=== PATIENT | female | born 1955 | race Caucasian/White ===

== ENCOUNTER → 2022-10-05 15:20 | Outpatient (BNVA) | payer MEDICARE, SELFPAY | PROVIDERS: PCP Family Medicine; Visit Provider Psychiatry & Neurology Neurology | DX: G20 Parkinson's disease (principal); I95.1 Orthostatic hypotension | CPT/HCPCS: 99202 ==

== ENCOUNTER → 2022-11-24 15:35 | Outpatient (BNVA) | payer MEDICARE, SELFPAY | PROVIDERS: PCP Family Medicine; Visit Provider Psychiatry & Neurology Neurology | DX: G20 Parkinson's disease (principal); I95.1 Orthostatic hypotension | CPT/HCPCS: 99212 ==

== ENCOUNTER 2023-05-24 15:30 | Outpatient (AMB) | payer MEDICARE, SELFPAY ==
--- NOTE | 2023-05-24 15:31 | MHC.OFFVIS ---
Intake Vital Signs 05/24/23 15:33 Height 5 ft 4 in Weight 153 lb 2 oz BMI 26.3 BP 138/86 Blood Pressure Location Lt brachial Position Sitting Respiration 16 Pulse 96 Pulse Source Pulse Oximeter Pulse Oximetry (%) 100 Oxygen Delivery Method Room Air Intake Visit Reasons: 4m f/up Gait disorder/Parkinson - Conf Intake Note: Pt presents for a 4 month follow up for gait disorder and Parkinson's. She reports she has been the same since her last visit with the exception of frequent voiding at night. 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 Everything is stable except in the past week her BP has been dropping. 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 she had a RE scan which showed decreased uptake bilateral basal ganglia, specifically Putamen R>L and left caudate nucleus. She has h/o vertigo many years ago . In 2019 she started noticing right shoulder stiffness, neck pain, neck stiffness , dizziness.she has h/o neck pain for over 20 years but worsened in 2019. she has episodes of dizziness in mornings when she is reading a newspaper, or using a computer in the morning. she also has nausea, lightheadedness. She denies diplopia , denies dysarthria , denies syncope. she denies any memory issues. she has sleep talking - screaming 1/week. No depression or anxiety She denies tremors Her writing is smaller. She is slower in using utensils, slower in showering, dressing. Her voice is softer and has occasional drooling. Her gait is slower and feels off balance. SHe was in [employer] in [employer] school. No exposure to neuroleptics She denies constipation. she reports tinnitus for past 3 weeks [facility] Medical History Orthostatic hypotension Orthostatic intolerance Parkinsonism Migraine GERD (gastroesophageal reflux disease) Vertigo Cervical spondylosis Arthritis Surgical History History of appendectomy History of ankle surgery Family History Father Diabetes Hypertension Waldenstrom's disease Heart attack Mother Afib Dementia Brother Heart attack Sister Heart attack Social History Alcohol intake: current Patient Tobacco Use Status: Never used Tobacco Physical Exam Vital Signs: Last Vital Signs Pulse 96 05/24/23 15:33 Resp 16 05/24/23 15:33 BP 138/86 05/24/23 15:33 Pulse Ox 100 05/24/23 15:33 Oxygen Delivery Method Room Air 05/24/23 15:33 BMI result Body Mass Index 26.3 Const General: cooperative, healthy appearing, comfortable and no acute distress Nutritional Appearance: average body habitus Orientation/consciousness: patient oriented x3 Limitations: no limitations HEENT Head: Yes normal to inspection Eyes Pupils: Equal, round and reactive pupils present Neck Neck: Yes no meningeal signs Neuro Other: Mildly decreased facial expression and blink Decreased right facial movement Decreased range of motion neck Decreased upgaze 1+ cog wheel rigidty right UE 1+ in left UE Fine finger movements decreased zev R>L Foot taps decreased bilaterally R>L No tremors Gait- good stride and midld ecreased arm swings General: patient oriented x3, moves all extremities and no meningeal signs Cranial nerves: Yes Equal, round and reactive pupils present, Yes Normal facial strength present, Yes Midline tongue present and Yes Symmetric palate elevation present Gait exam (Neuro): Other gait observations present (mild stoop, no arm swing on right decreased on left, smaller steps) Deep tendon reflexes (DTR's): Right triceps reflex intensity grade: 2+, Left triceps reflex intensity grade: 2+, Rt Biceps (C5, C6): 2+, Left biceps reflex intensity grade: 2+, Right brachioradialis reflex intensity grade: 2+, Left brachioradialis reflex intensity grade: 2+, Right patellar reflex intensity grade: 3+ and Left patellar reflex intensity grade: 3+ Coordination: [id number] test normal Assessment & Plan Assessment & Plan (1) 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 side effects discussed Medications: New droxidopa (Northera) give consistently with OR without food, upon rising, at midday, late PM/at least 3hrs before bedtime 100 mg PO TID 90 caps 0RF Coding Level of Care Code Est Pt Level 4 (09626) Diagnoses Parkinsonism G20 Orthostatic hypotension I95.1
[2023-05-24 15:33] VITALS: BP 138/86; PULSE 96; RESP 16; O2SAT 100; BMI 26.3
== END 2023-05-24 15:53 | disposition home or self-care (01) ==
PROVIDERS: Visit Provider Psychiatry & Neurology Neurology
DX: G90.3 Multi-system degeneration of the autonomic nervous system (principal); G20.C Parkinsonism, unspecified
CPT/HCPCS: 99214

== ENCOUNTER → 2023-05-24 15:30 | Outpatient (BNVA) | payer MEDICARE, SELFPAY | PROVIDERS: Visit Provider Psychiatry & Neurology Neurology | DX: G20.A1 Parkinson's disease without dyskinesia, without mention of fluctuations (principal); I95.1 Orthostatic hypotension | CPT/HCPCS: 99212 ==

== ENCOUNTER 2023-09-08 13:01 | Outpatient (AMB) | payer MEDICARE, SELFPAY ==
--- NOTE | 2023-09-08 13:02 | MHC.OFFVIS ---
Intake Intake Visit Reasons: 3 mo f/u -Gait disorder/Parkinson-LVM Intake Note: Pt presents for a 3 month follow up for med check of Droxidopa. She reports doing well on this med. She is concerned that the pharmacist advised this presciptionin conjunction with her Midirin have serious side effects. Test link to [phone] Product Development Assistant Required: No Allergies Penicillins Adverse Reaction (Severe, Verified 09/08/23 13:05) rash HPI HPI Comments History of Present Illness Details 68y/o right handed female calls for follow up parkinsonism . 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 she had a RE scan which showed decreased uptake bilateral basal ganglia, specifically Putamen R>L and left caudate nucleus. She has h/o vertigo many years ago . In 2019 she started noticing right shoulder stiffness, neck pain, neck stiffness , dizziness.she has h/o neck pain for over 20 years but worsened in 2019. she has episodes of dizziness in mornings when she is reading a newspaper, or using a computer in the morning. she also has nausea, lightheadedness. She denies diplopia , denies dysarthria , denies syncope. she denies any memory issues. she has sleep talking - screaming 1/week. No depression or anxiety She denies tremors Her writing is smaller. She is slower in using utensils, slower in showering, dressing. Her voice is softer and has occasional drooling. Her gait is slower and feels off balance. SHe was in [employer] in [employer] school. No exposure to neuroleptics She denies constipation. she reports tinnitus for past 3 weeks [facility] Medical History Parkinsonian syndrome with idiopathic orthostatic hypotension Orthostatic hypotension Orthostatic intolerance Parkinsonism Migraine GERD (gastroesophageal reflux disease) Vertigo Cervical spondylosis Arthritis Surgical History History of appendectomy History of ankle surgery Family History Father Diabetes Hypertension Waldenstrom's disease Heart attack Mother Afib Dementia Brother Heart attack Sister Heart attack Social History Alcohol intake: current Patient Tobacco Use Status: Never used Tobacco Physical Exam Const General: cooperative, healthy appearing and comfortable Nutritional Appearance: average body habitus Orientation/consciousness: patient oriented x3 Neuro General: patient oriented x3 Cognition (Neuro): normal cognition Assessment & Plan Assessment & Plan (1) Parkinsonian syndrome with idiopathic orthostatic hypotension: Code(s): G20.C - Parkinsonism, unspecified; I95.1 - Orthostatic hypotension Plan Continue exercise Continue midodrine 2.5mg qa m and droxidopa 100mg tid Declines parkinsons medications. side effects discussed Telehealth Telehealth Location of provider rendering services: practice address Location of patient: address on file Patient Identification confirmed using: Name, : Yes Telehealth method: video Patient verbally consented to treatment: Yes Patient verbally consented to billing insurance company: Yes Patient informed of any privacy concerns related to visit: Yes Minutes spent on Phone/Video with Pt.: 16 Coding Level of Care Code Tele Est Pt Level 4 (27898) Diagnoses Parkinsonian syndrome with idiopathic orthostatic hypotension G20.C; I95.1
== END 2023-09-08 14:30 | disposition home or self-care (01) ==
LOC: HO.HSMS 13:02
PROVIDERS: PCP Family Medicine; Visit Provider Psychiatry & Neurology Neurology
DX: G20.C Parkinsonism, unspecified (principal); I95.1 Orthostatic hypotension
CPT/HCPCS: 99214

== ENCOUNTER → 2023-09-08 13:01 | Outpatient (BNVA) | payer MEDICARE, SELFPAY | PROVIDERS: PCP Family Medicine; Visit Provider Psychiatry & Neurology Neurology ==

== ENCOUNTER 2023-11-28 15:25 | Outpatient (AMB) | payer MEDICARE, SELFPAY ==
--- NOTE | 2023-11-28 15:32 | MHC.OFFVIS ---
Vital Signs 11/28/23 15:33 Height 5 ft 4 in Weight 153 lb BMI 26.3 BP 128/78 Blood Pressure Location Rt brachial Position Sitting Respiration 16 Pulse 89 Pulse Source Pulse Oximeter Pulse Oximetry (%) 96 Oxygen Delivery Method Room Air Intake Visit Reasons: 6m f/u Gait Disorder/Parkinson - Confirmed Intake Note: Pt presents for a 3 month follow up for Parkinson's. 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 She is doing better with droxidopa 100mg tid and midodrine 2.5mg qam Her BP occasionally is low in AM - 88/40 she reports left ankle fracture in the 90s and has plate and screws . But recently she started having more pain in her ankle. Her PCP reffered her to PT. 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 she had a RE scan which showed decreased uptake bilateral basal ganglia, specifically Putamen R>L and left caudate nucleus. She has h/o vertigo many years ago . In 2019 she started noticing right shoulder stiffness, neck pain, neck stiffness , dizziness.she has h/o neck pain for over 20 years but worsened in 2019. she has episodes of dizziness in mornings when she is reading a newspaper, or using a computer in the morning. she also has nausea, lightheadedness. She denies diplopia , denies dysarthria , denies syncope. she denies any memory issues. she has sleep talking - screaming 1/week. No depression or anxiety She denies tremors Her writing is smaller. She is slower in using utensils, slower in showering, dressing. Her voice is softer and has occasional drooling. Gait has been stable she reports constipation now. 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 Orthostatic hypotension Orthostatic intolerance Parkinsonism Migraine GERD (gastroesophageal reflux disease) Vertigo Cervical spondylosis Arthritis Surgical History History of appendectomy History of ankle surgery Family History Father Diabetes Hypertension Waldenstrom's disease Heart attack Mother Afib Dementia Brother Heart attack Sister Heart attack Social History Alcohol intake: current Patient Tobacco Use Status: Never used Tobacco Physical Exam Vital Signs: Last Vital Signs Pulse 89 11/28/23 15:33 Resp 16 11/28/23 15:33 BP 128/78 11/28/23 15:33 Pulse Ox 96 11/28/23 15:33 Oxygen Delivery Method Room Air 11/28/23 15:33 BMI result Body Mass Index 26.3 Const General: cooperative, healthy appearing, comfortable and no acute distress Nutritional Appearance: average body habitus Orientation/consciousness: patient oriented x3 Limitations: no limitations HEENT Head: Yes normal to inspection Eyes Pupils: Equal, round and reactive pupils present Neck Neck: Yes no meningeal signs Neuro Other: Mildly decreased facial expression and blink Decreased right facial movement Decreased range of motion neck Decreased upgaze 1+ cog wheel rigidty right UE 1+ in left UE Fine finger movements decreased zev R>L Foot taps decreased bilaterally R>L No tremors Gait- good stride and mild decreased arm swings General: patient oriented x3, moves all extremities and no meningeal signs Cranial nerves: Yes Equal, round and reactive pupils present, Yes Normal facial strength present, Yes Midline tongue present and Yes Symmetric palate elevation present Gait exam (Neuro): Other gait observations present (mild stoop, no arm swing on right decreased on left, smaller steps) Deep tendon reflexes (DTR's): Right triceps reflex intensity grade: 2+, Left triceps reflex intensity grade: 2+, Rt Biceps (C5, C6): 2+, Left biceps reflex intensity grade: 2+, Right brachioradialis reflex intensity grade: 2+, Left brachioradialis reflex intensity grade: 2+, Right patellar reflex intensity grade: 3+ and Left patellar reflex intensity grade: 3+ Coordination: [id number] test normal Assessment & Plan Assessment & Plan (1) Parkinsonian syndrome with idiopathic orthostatic hypotension: Code(s): G20.C - Parkinsonism, unspecified; I95.1 - Orthostatic hypotension Category: Medical Plan Continue exercise Continue midodrine 2.5mg qa m and droxidopa 100mg tid Declines parkinsons medications. side effects discussed Refer to ortho Orders: Referrals Orthopedics Referral M25.572 - Pain in left ankle and joints of left foot, Z87.81 - Personal history of (healed) traumatic fracture Coding Level of Care Code Est Pt Level 4 (31428) Complex EM visit Add On G2211 Diagnoses Parkinsonian syndrome with idiopathic orthostatic hypotension G20.C; I95.1
[2023-11-28 15:33] VITALS: BP 128/78; PULSE 89; RESP 16; O2SAT 96; BMI 26.3
== END 2023-11-28 15:56 | disposition home or self-care (01) ==
PROVIDERS: PCP Family Medicine; Visit Provider Psychiatry & Neurology Neurology
DX: G20.C Parkinsonism, unspecified (principal); I95.1 Orthostatic hypotension
CPT/HCPCS: 99214; G2211

== ENCOUNTER → 2023-11-28 15:25 | Outpatient (BNVA) | payer MEDICARE, SELFPAY | PROVIDERS: PCP Family Medicine; Visit Provider Psychiatry & Neurology Neurology | DX: G20.C Parkinsonism, unspecified (principal); I95.1 Orthostatic hypotension | CPT/HCPCS: 99212 ==

== ENCOUNTER 2024-06-05 14:00 | Outpatient (AMB) | payer MEDICARE, SELFPAY ==
[2024-06-05 14:03] VITALS: BP 126/74; BMI 25.9
--- NOTE | 2024-06-05 14:03 | MHC.OFFVIS ---
Vital Signs 06/05/24 14:03 Height 5 ft 4 in Weight 151 lb BMI 25.9 BP 126/74 Blood Pressure Location Rt brachial Position Sitting Intake Visit Reasons: 6 mon follow up Intake Note: Patient presents for 6 month follow up Allergies Penicillins Adverse Reaction (Severe, Verified 06/05/24 14:05) rash HPI Comments Details: 68y/o right handed female comes for follow up parkinsonism and orthostatic hypotension. She is doing better with droxidopa 100mg tid and midodrine 2.5mg qam Her BP is good - low( 90/50) in mornings but gets better after .she is feeling better . she Increased her fluid intake No falls , she got a cortisone shot in he [facility] and has been good since then. 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 she had a RE scan which showed decreased uptake bilateral basal ganglia, specifically Putamen R>L and left caudate nucleus. She has h/o vertigo many years ago . In 2019 she started noticing right shoulder stiffness, neck pain, neck stiffness , dizziness.she has h/o neck pain for over 20 years but worsened in 2019. she has episodes of dizziness in mornings when she is reading a newspaper, or using a computer in the morning. she also has nausea, lightheadedness. She denies diplopia , denies dysarthria , denies syncope. she denies any memory issues. she has sleep talking - screaming 1/week. No depression or anxiety She denies tremors Her writing is smaller. She is slower in using utensils, slower in showering, dressing. Her voice is softer and has occasional drooling. Gait has been stable she reports constipation now. 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 Orthostatic hypotension Orthostatic intolerance Parkinsonism Migraine GERD (gastroesophageal reflux disease) Vertigo Cervical spondylosis Arthritis Surgical History History of appendectomy History of ankle surgery Family History Father Diabetes Hypertension Waldenstrom's disease Heart attack Mother Afib Dementia Brother Heart attack Sister Heart attack Social History Alcohol intake: current Patient Tobacco Use Status: Never used Tobacco Physical Exam Vital Signs: Last Vital Signs BP 126/74 06/05/24 14:03 BMI result Body Mass Index 25.9 Const General: cooperative, healthy appearing, comfortable and no acute distress Nutritional Appearance: average body habitus Orientation/consciousness: patient oriented x3 Limitations: no limitations HEENT Head: Yes normal to inspection Eyes Pupils: Equal, round and reactive pupils present Neck Neck: Yes no meningeal signs Neuro Other: Mildly decreased facial expression and blink Decreased right facial movement Decreased range of motion neck Decreased upgaze 1+ cog wheel rigidty right UE 1+ in left UE Fine finger movements decreased zev R>L Foot taps decreased bilaterally R>L No tremors Gait- good stride and mild decreased arm swings General: patient oriented x3, moves all extremities and no meningeal signs Cranial nerves: Yes Equal, round and reactive pupils present, Yes Normal facial strength present, Yes Midline tongue present and Yes Symmetric palate elevation present Gait exam (Neuro): Other gait observations present (mild stoop, no arm swing on right decreased on left, smaller steps) Coordination: [id number] test normal Assessment & Plan Assessment & Plan (1) Parkinsonian syndrome with idiopathic orthostatic hypotension: Code(s): G20.C - Parkinsonism, unspecified; I95.1 - Orthostatic hypotension Category: Medical Plan Continue exercise Continue midodrine 2.5mg qa m and droxidopa 100mg tid Declines parkinsons medications. side effects discussed Coding Level of Care Code Est Pt Level 4 (78886) Complex EM visit Add On G2211 Diagnoses Parkinsonian syndrome with idiopathic orthostatic hypotension G20.C; I95.1
== END 2024-06-05 14:18 | disposition home or self-care (01) ==
PROVIDERS: PCP Family Medicine; Visit Provider Psychiatry & Neurology Neurology
DX: G20.C Parkinsonism, unspecified (principal); I95.1 Orthostatic hypotension
CPT/HCPCS: 99214; G2211

== ENCOUNTER → 2024-06-05 14:00 | Outpatient (BNVA) | payer MEDICARE, SELFPAY | PROVIDERS: PCP Family Medicine; Visit Provider Psychiatry & Neurology Neurology | DX: G20.C Parkinsonism, unspecified (principal); I95.1 Orthostatic hypotension | CPT/HCPCS: 99212 ==

== ENCOUNTER 2024-12-21 14:01 | Outpatient (AMB) | payer MEDICARE, SELFPAY ==
[2024-12-21 14:04] VITALS: BP 130/70; PULSE 99; O2SAT 98; BMI 25.1
--- NOTE | 2024-12-21 14:04 | MHC.OFFVIS ---
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 She is doing better with droxidopa 100mg 2-1-1 and midodrine 2.5mg qam Her BP is good - low( 90/50) in mornings but gets better after .she is feeling better . 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 she had a RE scan which showed decreased uptake bilateral basal ganglia, specifically Putamen R>L and left caudate nucleus. She has h/o vertigo many years ago . In 2019 she started noticing right shoulder stiffness, neck pain, neck stiffness , dizziness.she has h/o neck pain for over 20 years but worsened in 2019. she has episodes of dizziness in mornings when she is reading a newspaper, or using a computer in the morning. she also has nausea, lightheadedness. She denies diplopia , denies dysarthria , denies syncope. she denies any memory issues. she has sleep talking - screaming 1/week. No depression or anxiety She denies tremors Her writing is smaller. She is slower in using utensils, slower in showering, dressing. Her voice is softer and has occasional drooling. Gait has been stable she reports constipation now. 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 Orthostatic hypotension Orthostatic intolerance Parkinsonism Migraine GERD (gastroesophageal reflux disease) Vertigo Cervical spondylosis Arthritis Surgical History History of appendectomy History of ankle surgery Family History Father Diabetes Hypertension Waldenstrom's disease Heart attack Mother Afib Dementia Brother Heart attack Sister Heart attack Social History Alcohol intake: current Patient Tobacco Use Status: Never used Tobacco Physical Exam Vital Signs: Last Vital Signs Pulse 99 12/21/24 14:04 BP 130/70 12/21/24 14:04 Pulse Ox 98 12/21/24 14:04 Oxygen Delivery Method Room Air 12/21/24 14:04 BMI result Body Mass Index 25.1 Const General: cooperative, healthy appearing, comfortable and no acute distress Nutritional Appearance: average body habitus Orientation/consciousness: patient oriented x3 Limitations: no limitations HEENT Head: Yes normal to inspection Eyes Pupils: Equal, round and reactive pupils present Neck Neck: Yes no meningeal signs Neuro General: patient oriented x3, moves all extremities and no meningeal signs Cranial nerves: Yes Equal, round and reactive pupils present, Yes Normal facial strength present, Yes Midline tongue present and Yes Symmetric palate elevation present Gait exam (Neuro): Other gait observations present (mild stoop, no arm swing on right decreased on left, smaller steps) Coordination: [id number] test normal Assessment & Plan Assessment & Plan (1) 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 side effects discussed Orders: Orders PT Evaluation and Treatment Today G20.C - Parkinsonism, unspecified, I95.1 - Orthostatic hypotension Coding Level of Care Code Est Pt Level 4 (64563) Complex EM visit Add On G2211 Diagnoses Parkinsonian syndrome with idiopathic orthostatic hypotension G20.C; I95.1
== END 2024-12-21 15:07 | disposition home or self-care (01) ==
LOC: HO.HSMS 14:02
PROVIDERS: PCP Family Medicine; Visit Provider Psychiatry & Neurology Neurology
DX: G20.C Parkinsonism, unspecified (principal); I95.1 Orthostatic hypotension
CPT/HCPCS: 99214; G2211

== ENCOUNTER → 2024-12-21 14:01 | Outpatient (BNVA) | payer MEDICARE, SELFPAY | PROVIDERS: PCP Family Medicine; Visit Provider Psychiatry & Neurology Neurology | DX: G20.C Parkinsonism, unspecified (principal); I95.1 Orthostatic hypotension | CPT/HCPCS: 99212 ==

== ENCOUNTER 2025-06-24 13:27 | Outpatient (AMB) | payer MEDICARE, SELFPAY ==
[2025-06-24 13:35] VITALS: BP 136/84; PULSE 85; O2SAT 98; BMI 26.1
--- NOTE | 2025-06-24 13:35 | MHC.OFFVIS ---
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 [employer] [facility] Required: No Accompanied by: Spouse Allergies Penicillins Adverse Reaction (Severe, Verified 06/24/25 13:35) rash Medication List - Last Reconciled 06/24/25 by Kim Dubon MD cholecalciferol (vitamin D3) 50 mcg PO DAILY droxidopa (Northera) 100 mg PO QID 90 days estradiol 10 mcg vaginal 2XW glucosamine uoud-hdgpt-2-vit E 500-400-5 mg-mg-unit caps PO magnesium oxide 400 mg PO DAILY midodrine 2.5 mg PO ONCE simvastatin 20 mg PO BEDTIME vitamin B complex 1 tab PO DAILY HPI Comments Details: 70y/o right handed female comes for follow up parkinsonism and orthostatic hypotension. she is doing good. Her main issues is balance but she is managing . No falls. She is doing better with droxidopa 100mg 2-1-1 and midodrine 2.5mg qam Her BP is good - low( 90/50) in mornings but gets better after .she is feeling better . she Increased her fluid intake she had tough time in January and February 2025 - her mother and brother in law she lives in a farm and [place] she was diagnosed with Parkinsons Plus syndrome in Apr 2022 . she had a RE scan which showed decreased uptake bilateral basal ganglia, specifically Putamen R>L and left caudate nucleus. She has h/o vertigo many years ago . In 2019 she started noticing right shoulder stiffness, neck pain, neck stiffness , dizziness.she has h/o neck pain for over 20 years but worsened in 2019. she has episodes of dizziness in mornings when she is reading a newspaper, or using a computer in the morning. she also has nausea, lightheadedness. She denies diplopia , denies dysarthria , denies syncope. she denies any memory issues. she has sleep talking - screaming 1/week. No depression or anxiety She denies tremors Her writing is smaller. She is slower in using utensils, slower in showering, dressing. Her voice is softer and has occasional drooling. Gait has been stable she reports constipation now. 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 Orthostatic hypotension Orthostatic intolerance Parkinsonism Migraine GERD (gastroesophageal reflux disease) Vertigo Cervical spondylosis Arthritis Surgical History History of appendectomy History of ankle surgery Family History Father Diabetes Hypertension Waldenstrom's disease Heart attack Mother Afib Dementia Brother Heart attack Sister Heart attack Social History Alcohol intake: current Patient Tobacco Use Status: Never used Tobacco Physical Exam Vital Signs: Last Vital Signs Pulse 85 06/24/25 13:35 BP 136/84 06/24/25 13:35 Pulse Ox 98 06/24/25 13:35 Oxygen Delivery Method Room Air 06/24/25 13:35 BMI result Body Mass Index 26.1 Const General: cooperative, healthy appearing, comfortable and no acute distress Nutritional Appearance: average body habitus Orientation/consciousness: patient oriented x3 Limitations: no limitations HEENT Head: Yes normal to inspection Eyes Pupils: Equal, round and reactive pupils present Neck Neck: Yes no meningeal signs Neuro General: patient oriented x3, moves all extremities and no meningeal signs Cranial nerves: Yes Equal, round and reactive pupils present, Yes Normal facial strength present, Yes Midline tongue present and Yes Symmetric palate elevation present Gait exam (Neuro): Other gait observations present (mild stoop, no arm swing on right decreased on left, smaller steps) Coordination: [id number] test normal Assessment & Plan Assessment & Plan (1) 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
--- OUTSIDE RECORDS SUMMARY | 2025-06-24 19:35 | XMS_ITS | Data Portability ---
Author Organization [facility] [employer], [employer] Address [address] [place] [address] [place] [address] Care Team Providers Care Health And Safety Tech Name Role Phone JENISE BRAVO Referring Provider Unavailable Assessment Encounter Date Assessment Date Assessment LastModified by Organization Details LastModified Time 04/05/2022 04/05/2022 IMPRESSION: -- early 2019 onset of 5-10-minute episodes of sweating and mild weakness, 5-8 times per month in the morning reading a paper or sometimes the computer, transforming ~October 2021 into daily morning episodes of mild nausea and very mild weakness, with noticeable but not intense neck pain, with no episodes throughout the course of a vacation; --~October 2021 onset of fatigue and weakness of ankles and legs climbing hills on a golf course or using elliptical machine, resolving in about 10 minutes after exertion is completed. --Acting out dream behavior intermittently for the past few years and recently smaller handwriting. Exam findings include mildly hunched gait with mildly small low trajectory steps and reduced arm swing; finger tapping and foot tapping dysrhythmia. 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 Parkinson's disease is most common but only occurs without rest tremor at presentation 10-15% of the time. Lewy body disease is next most common. She does not report any hallucination but I do not ask explicitly. I will at follow-up. Her lucid history does not suggest any cognitive decline. Her morning episodes have an autonomic character. This could be multisystems atrophy. Alternatively, the nausea may be myofascial in the context of worsened neck pain which may relate to emerging truncal rigidity from parkinsonism. We discussed this. She wonders how certain I am about a parkinsonian. I did tell her that the exam signs together with her acting out dreams and her smaller handwriting make me fairly certain, at least 50%, but I would like some additional objective data. I suggest DaTscan and she agrees. She also agrees to follow-up with her given that this serious diagnosis is on the table. She wonders about prognosis. I tell her if there is parkinsonism, it progresses slowly, over years. The progression will make gait increasingly difficult and will make coordination increasingly difficult. Depending on the type of parkinsonism, medications may be of more or less help. PLAN Rhonda Fink, April 05, 2022 DATSCAN for worsening gait, REM behavior sleep disorder and parkinsonism on exam. Follow-up afterwards with your . elizabeth Not available 04/05/2022 16:57:27 05/25/2022 05/25/2022 IMPRESSION: -- -- early 2019 onset of 5-10-minute episodes of sweating and mild weakness, 5-8 times per month in the morning reading a paper or sometimes the computer, transforming ~October 2021 into daily morning episodes of mild nausea and very mild weakness, with noticeable but not intense neck pain, with no episodes throughout the course of a vacation; --~October 2021 onset of fatigue and weakness of ankles and legs climbing hills on a golf course or using elliptical machine, resolving in about 10 minutes after exertion is completed. --Acting out dream behavior intermittently for the past few years and recently smaller handwriting. DATA REVIEW IMAGING: DaTscan April 28, 2022, per dictation [facility] radiology: Significantly decreased radiotracer uptake bilaterally and basal ganglia, more specifically in the bilateral putamen right worse than left and in the left caudate nucleus. Consistent with a parkinsonian syndrome of dopaminergic depletion. We discussed that this makes it highly likely that she has a parkinsonian condition of dopaminergic depletion explaining at least a large proportion of her presenting symptoms. She responds that her mind is in denial. Further explanation and answering of questions is summarized in the plan given to patient and , below. Her neck pain and nausea in the morning bother her. I think this may be myofascial although related to emerging stiffness from parkinsonism. She is agreeable to physical therapy. Her weakness in lower extremities with physical activities likely relates to her parkinsonian gait. I offered physical therapy for this as well and she again is agreeable. She wondered about medication. We discussed that carbidopa/levodop a helps symptoms and Parkinson's disease significantly, less so in other syndromes of dopaminergic depletion. When I mentioned that there might be side effects, she says that she likes to avoid medications as much as she can and would like to hold off on carbidopa/levodop a. To review the clinical diagnostic pathway at initial consultation March 2022: Exam findings include mildly hunched gait with mildly small low trajectory steps and reduced arm swing; finger tapping and foot tapping dysrhythmia. 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 Parkinson's disease is most common but only occurs without rest tremor at presentation 10-15% of the time. Lewy body disease is next most common. She does not report any hallucination but I do not ask explicitly. I will at follow-up. Her lucid history does not suggest any cognitive decline. Her morning episodes have an autonomic character. This could be multisystems atrophy. Alternatively, the nausea may be myofascial in the context of worsened neck pain which may relate to emerging truncal rigidity from parkinsonism. We discussed this. She wonders how certain I am about a parkinsonian. I did tell her that the exam signs together with her acting out dreams and her smaller handwriting make me fairly certain, at least 50%, but I would like some additional objective data. I suggest DaTscan and she agrees. She also agrees to follow-up with her given that this serious diagnosis is on the table. She wonders about prognosis. I tell her if there is parkinsonism, it progresses slowly, over years. The progression will make gait increasingly difficult and will make coordination increasingly difficult. Depending on the type of parkinsonism, medications may be of more or less help. PLAN Rhonda Fink, May 252021 DaTscan is positive so you have, in all likelihood, a syndrome of parkinsonism that comes from reduced dopamine in parts of your brain that control how you move. The possible conditions that you have, in order of likelihood are: Parkinson's disease (70% of positive DaTscan) Lewy body disease (25% of positive DaTscan) Multisystems atrophy, supranuclear palsy and cortical basal degeneration the other 5%. If you have any of these truly rare conditions, it would be multisystems atrophy as your exam does not suggest supranuclear palsy or cortical basal degeneration at all. Although Parkinson's disease is most common, only 10 to 15% of people with Parkinson's disease start out without a tremor of one of their hands when it is in their left. You do not have such a tremor. At makes Parkinson's disease somewhat less likely for you, personally. Lewy body disease would then become the next most likely but you do not have the other two main issues (besides your abnormal walking) that characterized Lewy body disease: Hallucination and significant day-to-day fluctuation. Multi systems atrophy is a possibility because of your nausea every morning which could be an unusual type of autonomic abnormality (autonomic = action of nerves unconsciously). PHYSICAL THERAPY A: Assess and treat myofascial syndrome plausibly relating to morning episodes of nausea and neck pain, not present during vacations; context parkinsonism, DATSCAN Positive, but particular type still uncertain, without rest tremor B: Also, assess and treat parkinsonian gait with a feeling of weakness most prominent after playing golf or using elliptical machine Colleen Pena MBA, PT [address] [address] [email or web address] We will send a referral to the physical therapist for physical therapy. It is your responsibility to make the initial phone call to the above number to set up an initial appointment CLINICAL TRIALS Or interested in clinical trials, maybe. He would like to know more about them. The best way to move forward is to visit the website clinical trials.gov. > Here are some websites that might be useful for more information for you: There are two large organizations that are focused on helping individuals with Parkinson's disease and their families. Each has a national website and a local website, which I provide: https://www.parki nson.org/ https://www.parki nson.org/Corrina nd .. https://www.apdap arkinson.org/ https://www.apdap arkinson.org/aaron moore/julia syed/ . . These websites may be useful for information about Lewy body disease NIH Info for families http://www.ninds. nih.gov/disorders /dementiawithlewy bodies/dementiawi thlewybodies.htm A book for families (Click ``pdf button to download pdf version of book) . You may find education about Parkinson's disease as well as resources including support groups for both patients and family members. I NINDS Parkinson's Disease Information Page http://www.ninds. nih.gov/disorders /parkinsons_disea se/parkinsons_dis ease.htm Follow-up in 3 months Osvaldo Mclaughlin MD, PhD [facility] mrossen Not available 05/25/2022 13:27:06 Plan of Treatment Reminders Order Date Submit Date Provider Last Modified By Organization Details Last Modified Time Details Appointments None recorded. Lab None recorded. Referral neurologic physical therapist referral - Also, assess and treat parkinsonia n gait with a feeling of weakness most prominent after playing golf or using elliptical machine 2021 022 [email or web address] 1 Colleen Pena PT, [address] [place] [address], [address], 3 13:49:20 neurologic physical therapist referral - Assess and treat myofascial syndrome plausibly relating to morning episodes of nausea and neck pain, not present during vacations; context parkinsonis m, DATSCAN Positive, but particular type still uncertain, without rest tremor 2021 [email or web address] 1 Colleen Pena PT, [address] [place] [address], [address], 3 13:49:19 Procedures None recorded. Surgeries None recorded. Imaging SPECT, brain - DATSCAN for worsening gait, REM behavior sleep disorder and parkinsonis m on exam. 2021 022 [email or web address] 1 [facility], [address], [place], [address], 2 15:54:12 SPECT, brain - DATSCAN for worsening gait, REM behavior sleep disorder and parkinsonis m on exam. [facility] [address], [place], [address], 16:38:47 Medication Orders None recorded. Patient TargetsNo targets recorded. Patient Instructions Encounter Date Encounter Id Patient Instructions Last Modified By Organization Details Last Modified Time 04/05/2022 [id number] BILLING Discussion across issues of diagnoses and management and same day associated chart review and management greater than 50% greater than 90 minutes mrossen Not available 04/05/2022 16:59:10 05/25/2022 [id number] BILLING Discussion across issues of diagnoses and management and same day associated chart review and management greater than 50% greater than 40 minutes mrossen Not available 05/25/2022 12:40:31 Reason for Referral Assess and treat myofascial syndrome plausibly relating to morning episodes of nausea and neck pain, not present during vacations; context parkinsonism, DATSCAN Positive, but particular type still uncertain, without rest tremor Referring Physician: Osvaldo Mclaughlin, Neurology, Encounter Date: 05/25/2022 Also, assess and treat parki nsonian gait with a feeling of weakness most prominent after playing golf or using elliptical machine Referring Physician: Osvaldo Mclaughlin, Neurology, Encounter Date: 05/25/2022 Results Created Date Observation Date Name Description Value Unit Range Abnormal Flag Note LastModifiedBy Organization Detail LastModifiedTime 04/28/20 22 04/28/2022 nm brain imagi ng prince SPECT Brain RE SPECT study. Histor y: Concer n for Judy son's diseas e. Compar china: None availa ble. Techni que: 5.5 mCi of I-123 Ioflup ane was inject ed intrav enousl y. After a four-h our delay, SPECT imagin g of the brain was perfor med. Findin gs: There is asymme tric radiot racer uptake in bilate ral basal gangli a with signif icant decrea sed uptake in the region of bilate ral putami na (right more than left) and decrea sed uptake in the left caudat e. Impres dwight: Signif icantl y decrea sed radiot racer uptake in the basal gangli a. Differ ential diagno sis includ es Judy son's diseas e, multip le system atroph y, progre ssive supran uclear palsy, bola ia with Lewy Bodies , and cortic al basal degene ration . I have person samaray review ed the images and I agree with this report . WSN: [id number] Orderi ng Physic slade: Dorcas Mclaughlin Dictat ed By: Karson Villalobos MD Dictat ed Date/T yelena: 4:30 pm Review ed By: Baldomero gonzalez MD, Viral Signed By: Baldomero gonzalez MD, Viral Signed Date/T yelena: 4:35 pm Transc ribed By: REN Transc ribed Date/T yelena: 4:06 pm Patien t Class: [facility] [address] (Outpt Imaging) [address] [facility], [place], [address], 04/29/2022 14:00:00 04/28/20 22 SPECT , brain No observ ation record ed. [address] [facility]iology [facility] 100 [facility], [place], [address], 04/28/2022 16:38:47 Result Notes None recorded. Procedures Surgical History Date Name Laterality Status Provider Name and Address Organization Details Recorded Time 05/25/2022 DATA REVIEW completed Osvaldo Mclaughlin MD [address] [place] [address], [phone], [facility] 05/25/2022 12:39:34 Imaging Results None recorded. Procedure Notes None recorded. Medical Equipment None Reported. Allergies No known drug allergies Medications Name Sig Start Date Stop Date Status Note LastModified by Organization Details LastModified Time hydrocodone 5 mg-acetaminop hen 325 mg tablet TAKE 1 TABLET BY MOUTH EVERY 6 HOURS NEEDED FOR PAIN active Not Available Not Available No t Available prednisone 20 mg tablet TAKE 2 TABLETS BY MOUTH DAILY WITH BREAKFAST. active Not Available Not Available N ot Available clindamycin HCl 150 mg capsule TAKE 1 CAPSULE BY MOUTH 4 TIMES A DAY active Not Available Not Available No t Available simvastatin 20 mg tablet active Not Available Not Available Not Available lorazepam 1 mg tablet TAKE 1 TABLET BY MOUTH 1 HOUR BEFORE PROCEDURE active Not Available Not Available No t Available fluocinonide 0.05 % topical cream APPLY TO AFFECTED AREAS TWICE A DAY FOR TWO WEEKS active Not Available Not Available No t Available chlorhexidine gluconate 0.12 % mouthwash RINSE MOUTH WITH 10 ML TWICE DAILY FOR 3 WEEKS. SPIT OUT AFTER USE active Not Available Not Available No t Available estradiol 10 mcg vaginal tablet active Not Available Not Available Not Available Vitals Date Recorded Body height Body mass index (BMI) Body weight Respiratory rate Provider Name and Address Organization Details Last Updated DateTime 04/05/2022 162.56 cm 27.5 kg/m2 66215.78 g 12 /min Tammie Navarrete [facility] 04/05/2022 15:59:17 Social History Question Answer Notes LastModified by QUIQ Details LastModified Time Tobacco Smoking Status Never Smoker Tammie Navarrete [facility] 04/05/2022 16:01:11 What Is Your Level Of Caffeine Consumption? Moderate 2 Cups Per Day Information not available 04/05/2022 What Is The Highest Grade Or Level Of School You Have Completed Or The Highest Degree You Have Received? [id number] Information not available 04/05/2022 Which Of Your Hands Is Dominant? Right Information not available 04/05/2022 Sex: Unknown Functional Status Question Answer Note LastModified by QUIQ Details LastModified Time What is your level of alcohol consumption? Moderate 4 drinks per week Information not available 04/05/2022 Mental Status None recorded. Family History Relationship Description Onset Age of this Age Resolved Age Notes LastModified by Organization Details LastModified Time Mother Dementia Not available 0 04/05/2022 15:59:28 Father Diabetes mellitus Not available 2021 15:59:34 Father Heart disease Not available 2021 15:59:41 Father Hypertensive disorder Not available 2021 15:59:50 Father Thyroiditis Not availabl e 04/05/2022 16:00:03 Medical History Condition Response Claustrophobia N Hospitalizations N Head Trauma/Injury N High Blood Pressure or Hypertension N Thyroid Problems N Lung Disease N COPD or emphysema N Brain Tumors N Depression N Encephalitis N Vitamin B12 deficiency N PTSD N Spine Problems N Heart Attack ([place]) N Obstructive Sleep Apnea N Alcoholism N Diabetes N Autoimmune disease N Bleeding Disorder N Arthritis N Tuberculosis N Developmental Problems N Cerebral Palsy N Neck Problems N Cancer N Back Problems N Stroke N Asthma N Heartburn, acid reflux, GERD Y Vitamin D Deficiency N Epilepsy/Seizures N Bipolar Disorder N Sleep Disorder N Hepatitis N Aneurysm N Liver Disease N Heart Disease N Headaches Y Fibromyalgia N Osteoporosis N High Cholesterol or Hyperlipidemia N Kidney Disease N Gynecological HistoryNo gynecological history recorded. 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 Abnormal gait 37765301 R 26.81 [id number] Osvaldo Mclaughlin MD [facility] [address] [place] [address] [place] [id number] 05/25/2022 12:20:39 05/25/2022 16:21:17 Parkinson's disease 99750520 G20 Lewy body disease 317379 02 G31.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 Abnormal gait 04696195 R 26.81 Dystonia 69573117 G24.3 Unsteadiness present 267 360780 R26.81 Health Concerns Section Related Observation LastModified by Organization Detai ls LastModified Time None Recorded Concern Status LastModified by Organization Details LastModified Time None Recorded Advance Directives Directive None Recorded Payers Insurance Date Sequence Insurance Name Policy Number Policy Rene Covered Member ID Rene Member ID Guarantor Name 05/22/2022 2 [facility] [id number] Rhonda Fink [id number] Rhonda Fink 05/26/2022 1 MEDICARE B-[place]: [email or web address] Rhonda Fink [id number] Rhonda Fink Notes Date Note Type Note Provider Name and Address Organization Details Recorded Time 2 text/html She presents for initial neurology consultation for assessment and management of:-- early 2019 onset of 5-10-minute episodes of sweating and mild weakness, 5-8 times per month in the morning reading a paper or sometimes the computer, transforming ~October 2021 into daily morning episodes of mild nausea and very mild weakness, with noticeable but not intense neck pain, with no episodes throughout the course of a vacation;--~October 2021 onset of fatigue and weakness of ankles and legs climbing hills on a golf course or using elliptical machine, resolving in about 10 minutes after exertion is completed.Past history includes hypercholesterolemia on simvastatin; there is a remote history of menses associated headaches.~2.5 years ago, early 2019, she began noticing 5-10-minute episodes of sudden onset of sweating with a mild feeling of weakness. Episodes would always occur in the morning, after eating, with sitting down and reading the paper or, less often, using the computer. Sometimes there was started immediately with one of these activities, sometimes it would take a while. When symptoms emerged, she would stop the activity. The episode would last 5-10 minutes. She would be able to go back to reading the paper or using the computer and there would be no recurrence. Episodes never happened later in the day. Episodes initially happened 5-8 times per month. There was slow increase in frequency so that by early spring 2021 they were happening eight-times per month, ~twice per week.In ~October 2021, episodes transformed in nature and became an every morning affect. Still, each episode would emerge during reading the paper or using the computer in the morning. However, the dominant symptom became nausea; the sweating resolved. Neck pain, not intense but notable, emerged as an additional symptom. There is no dizziness with this nausea during morning reading. She notes that she has had neck pain for years, intermittently after exercise such as golf or gym work such as using the elliptical machine. Also new since ~October, when she is crossing the street and looking both ways, she gets a brief seconds long very mild episode of nausea, with a very little dizziness.She went on a vacation in late spring 2021 during which she had no episodes during morning reading of the newspaper or using the computer. She has not tried not reading the newspaper or the computer in the morning while not on vacation.In addition, also ~October 2021, she began to notice problems with walking, fatigue and weakness in ankles and thighs walking up each of the two hills on her golf course; and the same symptoms using the elliptical machine. There is no associated pain or shortness of breath or any other symptom. The fatigue and weakness resolves ~10 minutes after the particular exertion finishes. The symptoms are bothersome enough so that she has switched from the elliptical machine to the treadmill where she does not get the symptoms, even if she uses the treadmill on an incline.I note that the sweating/mild weakness in the morning symptoms emerged around the same time that COVID emerged as a pandemic. She has thought about that but believes the symptoms started before the pandemic started. She notes that at that time, she had a cardiac work-up with primary care that was unrevealing.She has no restless legs at night. Her has noticed her laughing or talking or sometimes hitting him while she is sleeping i nfrequently, at least he tells her infrequently. This has been going on for few years. She has noticed that her handwriting has gotten smaller unless she really concentrates. Her sense of smell is good. She has no problem with bladder control. She has never noticed a tremor. Osvaldo Mclaughlin MD [address] [place] [address], [phone], [facility] 04/07/2022 13:10:17 2 text/html Follow-up of:-- early 2019 onset of 5-10-minute episodes of sweating and mild weakness, 5-8 times per month in the morning reading a paper or sometimes the computer, transforming ~October 2021 into daily morning episodes of mild nausea and very mild weakness, with noticeable but not intense neck pain, with no episodes throughout the course of a vacation;--~October 2021 onset of fatigue and weakness of ankles and legs climbing hills on a golf course or using elliptical machine, resolving in about 10 minutes after exertion is completed.-- She is accompanied by her , Ebenezer Mendez history includes hypercholesterolemia on simvastatin; there is a remote history of menses associated headaches.Since initial neurology consultation April 05, 2022, she has had no change in symptomatology. I ask if she has ever had hallucination as I had neglected to ask that at initial consultation. She responds no, never. In addition, her symptoms remain essentially the same from day-to-day as there is no marked day-to-day variation. Presenting symptomatology is reviewed from initial neurology consultation April 05, 2022:~2.5 years ago, early 2019, she began noticing 5-10-minute episodes of sudden onset of sweating with a mild feeling of weakness. Episodes would always occur in the morning, after eating, with sitting down and reading the paper or, less often, using the computer. Sometimes there was started immediately with one of these activities, sometimes it would take a while. When symptoms emerged, she would stop the activity. The episode would last 5-10 minutes. She would be able to go back to reading the paper or using the computer and there would be no recurrence. Episodes never happened later in the day. Episodes initially happened 5-8 times per month. There was slow increase in frequency so that by early spring 2021 they were happening eight-times per month, ~twice per week.In ~October 2021, episodes transformed in nature and became an every morning affect. Still, each episode would emerge during reading the paper or using the computer in the morning. However, the dominant symptom became nausea; the sweating resolved. Neck pain, not intense but notable, emerged as an additional symptom. There is no dizziness with this nausea during morning reading. She notes that she has had neck pain for years, intermittently after exercise such as golf or gym work such as using the elliptical machine. Also new since ~October, when she is crossing the street and looking both ways, she gets a brief seconds long very mild episode of nausea, with a very little dizziness.She went on a vacation in late spring 2021 during which she had no episodes during morning reading of the newspaper or using the computer. She has not tried not reading the newspaper or the computer in the morning while not on vacation.In addition, also ~October 2021, she began to notice problems with walking, fatigue and weakness in ankles and thighs walking up each of the two hills on her golf [place]; and the same symptoms using the elliptical machine. There is no associated pain or shortness of breath or any other symptom. The fatigue and weakness resolves ~10 minutes after the particular exertion finishes. The symptoms are bothersome enough so that she has switched from the elliptical machine to the treadmill where she does not get the symptoms, even if she uses the treadmill on an incline.I note that the sweating/mild weakness in the morning symptoms emerged around the same time that COVID emerged as a pandemic. She has thought about that but believes the symptoms started before the pandemic started. She notes that at that time, she had a cardiac work-up with primary care that was unrevealing.She has no restless legs at night. Her has noticed her laughing or talking or sometimes hitting him while she is sleeping i nfrequently, at least he tells her infrequently. This has been going on for few years. She has noticed that her handwriting has gotten smaller unless she really concentrates. Her sense of smell is good. She has no problem with bladder control. She has never noticed a tremor. Osvaldo Mclaughlin MD [address] [place] [address] [place], [phone], [facility] 05/25/2022 13:28:16 OBGyn Episode No OBEpisode recorded.
--- OUTSIDE RECORDS SUMMARY | 2025-06-24 19:35 | XMS_ITS | Encounter Summary ---
Author Organization [employer] [facility] Address [address] [place] [address] [place] [address] Phone Care Team Providers Care Research Chief Engineer Name Role Phone Reilly Tucker MD Primary Care Provider Shelly James MD Unavailable [phone] Reilly Tucker MD Unavailable [phone] Reilly Tucker MD Unavailable [phone] Ilya Vieyra MD Primary Care Provider [phone] Ilya Vieyra MD Unavailable Encounter Details Date Type Department Care Team (Latest Contact Info) Description 02/05/2022 Transcribe Orders Virtual Department [address] [place] [address] Reilly Tucker MD [address] [phone] [email or web address] Vertigo, late effect of cerebrovascular disease (Primary Dx) Social History Tobacco Use Types Packs/Day Years Used Date Smoking Tobacco: Never Smokeless Tobacco: Never Alcohol Use Standard Drinks/Week Comments Yes 3 (1 standard drink = 0.6 oz pur e alcohol) Comments No Sex and Gender Information Value Date Recorded Sex Assigned at Not on file Legal Sex Female 9:58 PM EDT Gender Identity Not on file Sexual Orientation Not on file documented as of this encounter Plan of Treatment Upcoming Encounters Date Type Department Care Team (Late st Contact Info) Description 09/06/2025 2:30 PM EST Office Visit [facility] [address] [place] [address] Ilya Vieyra MD 234 [facility], [address] [place] [address] [email or web address] documented as of this encounter Results * XR CERVICAL SPINE 4-5 VIEWS (02/08/2022 11:17 AM EDT) Anatomical Region Laterality Modality C-spine Computed Radiogr aphy 02/08/2022 11:1 9 AM EDT Impressions 02/08/2022 2:03 PM EDT Moderate C5-6 and mild C6-7 disc disease. Mild right C5-6 neural foraminal stenosis. Narrative 02/08/2022 2:03 PM EDT COMPARISON: None. CERVICAL SPINE RADIOGRAPH FINDINGS: 6 images obtained. The odontoid tip is not well visualized. Osteopenia. Mild curvature convex to the right. No acute fracture or malalignment. Moderate C5-6 and mild C6-7 disc space narrowing with anterior wedging and endplate osteophytes. Multilevel mild facet arthropathy. Mild right C5-6 neural foraminal narrowing. No cervical ribs. No destructive or suspicious bone lesions. Prevertebral soft tissues are normal. Imaged lung apices are clear. Procedure Note Vinh Gill MD - 02/08/2022 COMPARISON: None. CERVICAL SPINE RADIOGRAPH FINDINGS: 6 images obtained. The odontoid tip is not well visualized. Osteopenia. Mild curvature convexto the right. No acute fracture or malalignment. Moderate C5-6 and mildC6-7 disc space narrowing with anterior wedging and endplate osteophytes.Multilevel mild facet arthropathy. Mild right C5-6 neural foraminalnarrowing. No cervical ribs. No destructive or suspicious bone lesions.Prevertebral soft tissues are normal. Imaged lung apices are clear. IMPRESSION: Moderate C5-6 and mild C6-7 disc disease. Mild right C5-6 neural foraminalstenosis. Reilly Tucker MD IMG XR SPINE Final R esult documented in this encounter Visit Diagnoses Diagnosis Vertigo, late effect of cerebrovascular disease- Primary Vertigo, late effect of cerebrovascular disease documented in this encounter Additional Health Concerns Assessment Noted Time PHQ-2 Depression Total Score: 1 12/07/19 20 10:41 AM EDT documented as of this encounter Care Teams Research Chief Engineer Relationship Specialty Start Date End Date Reilly Tucker MD [address] [address] [place] [phone] [email or web address] PCP - General 04/25/17 06/08/22 Ilya Vieyra MD [address] [place] [address] [place] [phone] [email or web address] PCP - General Family Medicine 06/09/22 Shelly James MD [address] [place] [id number] [email or web address] Historical LMR Provider 05/01/17 Reilly Tucker MD [address] [address] [place] [phone] [email or web address] Historical LMR Provider 05/01/17 Reilly Tucker MD [address] [address] [place] [phone] [email or web address] Insurance Assigned Provider 11/11/18 Ilya Vieyra MD [address] [place] [address] [place] [phone] [email or web address] Insurance Assigned Provider 10/15/23 documented as of this encounter Additional Source Comments The information contained in this document represents components of the legal health record. It is not the complete legal health record.[facility]
--- OUTSIDE RECORDS SUMMARY | 2025-06-24 19:35 | XMS_ITS | Encounter Summary ---
Author Organization [employer] [facility] Address [address] [place] [address] [place] [address] Phone Care Team Providers Care Second Officer Name Role Phone Reilly Tucker MD Primary Care Provider Shelly James MD Unavailable [phone] Reilly Tucker MD Unavailable [phone] Ilya Vieyra MD Primary Care Provider [phone] Ilya Vieyra MD Unavailable Encounter Details Date Type Department Care Team (Late st Contact Info) Description 02/23/2022 Procedure Pass [facility], [address] [address] Social History Tobacco Use Types Packs/Day Years [...] Description 09/06/2025 2:30 PM EST Office Visit [facility] Medicine [address] [place] [address] Ilya Vieyra MD [address] [place] [address], [address] [place] [address] [email or web address] documented as of this encounter Visit Diagnoses Not on filedocumented in this encounter Additional Health Concerns Assessment Noted Time PHQ-2 Depression Total Score: 1 12/07/19 20 10:41 AM EDT documented as of this encounter Care Teams Second Officer Relationship Specialty Start Date End Date Reilly Tucker MD [address] [address] [place] [phone] [email or web address] PCP - General 04/25/17 06/08/22 Ilya Vieyra MD [address] [place] [address] [place] [phone] [email or web address] PCP - General Family Medicine 06/09/22 Shelly James MD [address] [place] [address] [email or web address] Historical LMR Provider 05/01/17 Reilly Tucker MD [address] [place] [address] [place] [phone] [email or web address] Historical LMR Provider 05/01/17 Ilya Vieyra MD [address] [place] [address] [place] [phone] [email or web address] Insurance Assigned Provider 10/15/23 documented as of this encounter Additional Source Comments The information contained in this document represents components of the legal health record. It is not the complete legal health record.[facility]
--- OUTSIDE RECORDS SUMMARY | 2025-06-24 19:35 | XMS_ITS | Clinical Summary ---
Author Organization [facility] Address [address] [place] [id number] Phone Care Team Providers Care Model Maker Scale Name Role Phone Shelly James MD Unavailable [phone] Reilly Tucker MD Unavailable [phone] Wilber Vieyra MD Primary Care Provider [phone] Wilber Vieyra MD Unavailable Allergies Active Allergy Reactions Criticality Noted Date Comments Penicillin Unknown 03/10/2017 Medications omega-3 fatty acids 300 mg Cap daily. Act santos magnesium oxide 500 mg Tab daily. Active famotidine (PEPCID) 10 MG tablet 1 tablet as needed 7 Active cholecalciferol, vitamin D3, 1,000 unit capsule daily. Active cyanocobalamin, vitamin B-12, 100 MCG tablet Take 100 mcg by mouth daily. Active midodrine (PROAMATINE) 2.5 MG tablet TAKE 1 TABLET BY MOUTH EVERY DAY DO NOT GIVE LAST DOSE OF DAY AFTER 6PM OR WITHIN 4 HRS OF BEDTIME 3 Active droxidopa (NORTHERA) 100 mg capsule 4 Active estradioL (VAGIFEM) 10 mcg TabIndications:Vag inal atrophy INSERT 1 TABLET VAGINALLY 2TIMES A WEEK 24 tablet 3 4 Active simvastatin (ZOCOR) 20 MG tabletIndications: Mixed hyperlipidemia TAKE 1 TABLET DAILY 90 tablet 3 5 Active furosemide (LASIX) 20 MG tabletIndications: Edema of left lower leg Take 1 tablet (20 mg total) by mouth daily. 30 tablet 5 5 Active Active Problems Problem Noted Date Diagnosed Date Neurogenic orthostatic hypotension 04/04/2025 Osteopenia of necks of both femurs 04/04/2025 Vitamin D deficiency 04/04/2025 Traumatic arthritis of left ankle 12/12/2023 Acute left ankle pain 11/14/2023 Assessment & Plan (11/14/2023 2:37 PM EDT): Left Ankle Pain: History of fracture in the 90s with subsequent hardware placement and removal. Recent increase in pain severity over the past three weeks, possibly related to increased treadmill use. Pain is localized to the top of the foot and lateral ankle and exacerbated by weight-bearing and lifting the foot. No significant swelling or signs of acute injury. -Order ankle x-ray to evaluate for possible stress fracture or arthritis. -Advise patient to continue supportive measures including wearing supportive shoes, using ice and elevation, and taking ibuprofen as needed. -Advise patient to maintain mobility within pain tolerance and to avoid exacerbating activities. -Schedule follow-up appointment to review x-ray results and adjust treatment plan as necessary. 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 She gave verbal consent and I shave the corn down with a 15 blade. No complications, no bleeding. Guidance was given. She will follow-up in a month or 2 for a reevaluation. She will call if there is any other concerns or questions. She understands and agrees. Abnormal stress ECG 12/01/2018 Assessment & Plan (12/14/2019 1:32 PM EDT): Previously false positive EKG findings on stress test. Just to make a note of this for the future Assessment & Plan (12/01/2018 9:44 AM EDT): I believe her EKG changes on exercise stress was false-positive she has no chest pain or nausea when she exercise she reached over 12 METS and her nuclear imaging was normal. Dizziness and giddiness 06/30/2018 Assessment & Plan (09/15/2022 8:54 PM EST): Patient is awaiting to get a second opinion regarding her symptoms. A neurologist that she saw originally for this problem has diagnosed her with parkinsonian- like syndrome. We will wait for her to get a second opinion and then discuss treatment options. Assessment & Plan (12/14/2019 1:32 PM EDT): Occasional orthostatic dizziness she does not hydrate well I recommended increasing her fluid intake. Assessment & Plan (06/30/2018 4:33 PM EST): She is having the symptoms of dizziness and nausea on exertion. Is unlikely to be cardiac especially since been going on for a year it does not happen all the time and it seems to only happen in her house at certain times of the day. She is otherwise quite active. Given her family history I think we just proceeded to do an exercise EKG stress test to make sure were not missing anything as females can have atypical symptoms. But he did tell her the likelihood of cardiac cause is low. Nausea 06/30/2018 Assessment & Plan (12/01/2018 9:44 AM EDT): Continue working up nausea either neurological or GI perspective Actinic keratosis 08/07/2017 GERD (gastroesophageal reflux disease) 8 Assessment & Plan (09/15/2022 8:53 PM EST): Plan is for patient to take [id number] Pepcid as needed for GERD symptoms. No signs or symptoms of worsening GERD suspected at this time. Mixed hyperlipidemia 08/07/2017 Assessment & Plan (11/18/2022 3:24 AM EDT): Patient is taking simvastatin 20 mg daily and denies any side effects from the medication. Her latest lipid profile shows total cholesterol of 184 and LDL of 105. Plan is to continue the medication as prescribed and we will recheck her lipid profile in 6 months. Assessment & Plan (09/15/2022 8:52 PM EST): Plan is to continue medication as prescribed. We will check a lipid panel before her next appointment. Assessment & Plan (12/14/2019 1:32 PM EDT): Given her family history we will continue her on statin therapy try to get her LDL below 100 Assessment & Plan (12/01/2018 9:44 AM EDT): Continue lipid-lowering therapy. We did talk about aspirin. Given her family history. Nuclear stress test was normal. I will consider a calcium CT scan to risk stratify her at some point if she is willing. She will let us know if she decides if that score is over 100 then I would consider a baby aspirin Vaginal atrophy 08/07/2017 Immunizations Immunization Administration Dates Next Due INFLUENZA, SPLIT VIRUS, TRIV ALENT W/ PRESERVATIVE IM 03/29/2011 Influenza High-Dose Quadriva lent Preservative Free IM 04/01/2023,04/07/2022 Influenza High-Dose Trivalen t Preservative Free IM 03/28/2020,04/01/2019,03/27/2018 Influenza Quadrivalent Adjuv anted Preservative Free IM 03/28/2021,03/29/2020 Influenza Quadrivalent Preservative Free IM 03/12,03/10/2016 Influenza Quadrivalent w/ Preservative IM 2014 Influenza Trivalent Adjuvant ed Preservative free IM 04/09/2024 Influenza trivalent preserva tive free intradermal 04/10/2014,04/03/2013,04/20/2012 Influenza, Unspecified Formulation 04/21/2010 Pneumococcal conjugate PCV13 03/10/2016 Pneumococcal conjugate PCV20 02/23/2024 Pneumococcal polysaccharide PPSV23 03/30/2017 Td (adult),2 Lf Tetanus Toxo id, PF, Adsorbed 04/26/2023 Tdap 02/24/2010 Zoster live 10/08/2013 Zoster recombinant 07/14/2022,01/25/2022 Family History Medical History Relation Comments CV disease Father Cancer Father Diabetes mellitus Father Hypertension Father Stroke Maternal Grandfather Relation Status Comments Father Alive Maternal Grandfather Sister heart attack 201 8 Social History Tobacco Use Types Packs/Day Years Used Date Smoking Tobacco: Never Smokeless Tobacco: Never Tobacco Cessation:Counseling Given: Not Answered Alcohol Use Standard Drinks/Week Comments Yes 3 (1 standard drink = 0.6 oz pur e alcohol) Education Answer Date Recorded Are you interested in more education? Not on kelsie e 11/05/2022 Are you concerned about learning? Not on file 11/05/2022 No 11/05/2022 No 11/05/2022 Digital Access Answer Date Recorded No 12/04/2022 No 12/04/2022 Reliable internet access at home? Not on file 12/04/2022 Device with a working camera? Not on file Intimate Partner Violence Answer Date R ecorded Denied Basic Needs Not on file 02/23/2024 In the past 12 months have y ou been in a relationship with a person who hurts, threatens, or tries to control you? No 02/23/2024 Worried food would run out Not on file 02/22 In the past 12 months have y ou been in a relationship with a person who hurts, threatens, or tries to control you? No 02/23/2024 Comments No Sex and Gender Information Value Date Recorded Sex Assigned at Not on file Legal Sex Female 9:58 PM EDT Gender Identity Not on file Sexual Orientation Not on file Last Filed Vital Signs Vital Sign Reading Time Taken Comments Blood Pressure 130/70 03/08/2025 4:18 PM EDT Pulse 88 03/08/2025 4:18 PM EDT Temperature 36.3 C (97.3 F) 08/30/2024 4:46 PM EST Respiratory Rate 18 08/25/2023 4:07 PM EST Oxygen Saturation 99% 03/08/2025 4:18 PM EDT Inhaled Oxygen Concentration - - Weight 67.1 kg (148 lb) 03/08/2025 4:18 PM EDT Height 162.6 cm (5' 4 ) 03/08/2025 4:18 PM EDT Body Mass Index 25.4 03/08/2025 4:18 PM EDT Plan of Treatment Upcoming Encounters Date Type Department Care Team (Late st Contact Info) Description 09/06/2025 2:30 PM EST Office Visit [facility] [address] [place] [address] Wilber Vieyra MD [address] [place] [address], [address] [place] [address] Health Maintenance Due Date Last Done Comments COLOGUARD 1998 FIT TEST 1998 FOBT 1998 SIGMOIDOSCOPY 1998 VIRTUAL COLONOSCOPY 1998 COLONOSCOPY 08/06/2020 08/06/2010 COLORECTAL CANCER SCREENING 08/06/2020 INFLUENZA VACCINE (#1) 2025 , 04/01/2023, 04/01/2023, Additional history exists COVID-19 VACCINE ( season) 2025 06/15/2021, 10/08/2020, 09/17/2020 CREATININE LEVEL 12/11/2025 12/11/2024, , 10/08/2022, Additional history exists LIPID PANEL 12/11/2025 12/11/2024, 12/09, 10/08/2022, Additional history exists POTASSIUM LEVEL 12/11/2025 12/11/2024, 12/09, 10/08/2022, Additional history exists DEPRESSION SCREENING 03/08/2026 03/08/2025 MAMMOGRAM 02/12/2027 02/12/2025, 09/09, 09/30/2022, Additional history exists RSV VACCINE (1 - 1-dose 75+ series) 2028 Adult Td,Tdap Booster 04/26/2033 04/26/2023, 010 HEPATITIS C SCREENING Completed 05/26/2020, 020 ZOSTER VACCINES Completed 07/14/2022, 01/08, 10/08/2013 PNEUMOCOCCAL VACCINES (50+ years) Completed 02/23/2024, 03/30/2017, 03/10/2016 OSTEOPOROSIS SCREENING INITIAL (ONE-TIME) Completed 08/10/2024 SMOKING STATUS SCREENING (Once After 26 Yrs) Completed 03/08/2025 HEPATITIS A VACCINES Aged Out No long er eligible based on patient's age to complete this topic HIB VACCINES Aged Out No longer eligi ble based on patient's age to complete this topic MENINGOCOCCAL VACCINES (ACWY) Aged Out No longer eligible based on patient's age to complete this topic MENINGOCOCCAL VACCINES (B) Aged Out N o longer eligible based on patient's age to complete this topic Medical Devices Not on file Procedures Procedure Name Priority Date/Time Associated Diagnosis Comments BI MAMMOGRAM SCREENING WITH TOMOSYNTHESIS WITH CAD (BILATERAL) Routine 02/12/2025 2:06 PM EDT Breast screening LIPID PANEL Routine 12/11/2024 9:49 AM EDT Mixed hyperlipidemia COMPREHENSIVE METABOLIC PANEL (CMP) Routine 12/11/2024 9:49 AM EDT Mixed hyperlipidemia BD DXA AXIAL (SPINE) WITH HIP Routine 08/10/2024 2:19 PM EST Asymptomatic menopause HEPATITIS C ANTIBODY, QUALITATIVE Routine 05/26/2020 9:32 AM EST Screening for condition from Last 3 Months or Most Recently Relevant to Health Maintenance Results * BI MAMMOGRAM SCREENING WITH TOMOSYNTHESIS WITH CAD (BILATERAL) (02/12/2025 2:06 PM EDT) Anatomical Region Laterality Modality Breast Left, Breast Right, Breast Bilateral Bila teral Mammography 02/12/2025 8:29 PM EDT Impressions 02/12/2025 8:34 PM EDT No mammographic evidence of malignancy in either breast. Annual screening mammography is recommended. BI-RADS 1 NEGATIVE The patient will be notified of the results and recommendations. Narrative 02/12/2025 8:34 PM EDT BI MAMMOGRAM SCREENING WITH TOMOSYNTHESIS WITH CAD (BILATERAL) Additional patient information: Screening. COMPARISON: Comparison is made with relevant prior imaging. Breast composition: There are scattered areas of fibroglandular density. FINDINGS: No abnormal masses, suspicious calcifications, or other significant findings are identified mammographically in either breast. us Wilber Vieyra MD IMG MG EXAMS Final Result * (ABNORMAL) Comprehensive metabolic panel (12/11/2024 9:49 AM EDT) SODIUM 141 133 - 146 mmol/L [facility] POTASSIUM 4.4 3.3 - 5.1 mmol/L [facility] CHLORIDE 105 96 - 108 mmol/L [facility] CO2 28 21 - 35 mmol/L [facility] BUN 22(H) 6 - 19 mg/dL [facility] CREATININE 0.80 0.5 - 1.5 mg/dL [facility] GLUCOSE 104(H) 70 - 99 mg/dL [facility] ALBUMIN 4.3 3.9 - 4.8 g/dL [facility] TOTAL PROTEIN 6.9 6.5 - 8.0 g/dL [facility] CALCIUM 9.4 8.4 - 10.3 mg/dL [facility] ALKALINE PHOSPHATASE 60 39 - 117 U/L [facility] TOTAL BILIRUBIN 0.3 0.0 - 1.2 mg/dL [facility] AST 17 0 - 37 U/L [facility] ALT 17 0 - 40 U/L [facility] GLOBULIN 2.6 1 - 4.8 g/dL [facility] EGFR 79 >59 mL/min/1.7 3m2 [facility] Comment:Estimated glomerular filtration rate calculated using the CKD-EPI refit equation. ANION GAP 12 10 - 20 mmol/L [facility] Blood 12/11/2024 9:49 AM EDT 12/11/2024 9:54 AM EDT us Wilber Vieyra MD LAB BLOOD BKR ORDERABLES Final R esult [address] [address] * (ABNORMAL) Lipid panel (12/11/2024 9:49 AM EDT) HDL 69 mg/dL [facility] Comment: Interpretation <40 mg/dL: Low HDL cholesterol (major risk factor for CHD) Greater than or equal to 60 mg/dL: High HDL cholesterol ( negative risk factor for CHD) HDL - cholesterol is affected by a number of factors, e.g. smoking, excerise, hormones, sex and age. CHOLESTEROL 192 0 - 240 mg/dL [facility] TRIGLYCERIDES 67 30 - 160 mg/dL [facility] LDL 110 50 - 129 mg/dL [facility] Comment: LDL levels in terms of risk for coronary heart disease: <100 mg/dL: Optimal 100-129 mg/dL: Near or above optimal 130-159 mg/dL: Borderline high 160-189 mg/dL: High >190 mg/dL: Very High CARDIAC RISK RATIO 2.8(L) 3.3 - 4.4 C [facility] Blood 12/11/2024 9:49 AM EDT 12/11/2024 9:54 AM EDT us Wilber Vieyra MD LAB BLOOD BKR ORDERABLES Final R esult Performing Organization Address City/State/[facility] Co de Phone Number [address] [address] * BD DXA AXIAL (SPINE) WITH HIP (08/10/2024 2:19 PM EST) Anatomical Region Laterality Modality Bone Density Bone Density 08/10/2024 2:17 PM EST Impressions 08/10/2024 2:21 PM EST Interpretation: Osteopenia. Narrative 08/10/2024 2:21 PM EST Referred By: WILBER VIEYRA Indications: Postmenopausal Scanner: Tomfoolery A with serial# of [id number] located at [facility] Bone Density Scan (DXA) 08/10/24 Details of prior DXA scans are available by clicking View Image BMD T- Z- Skeletal Site gm/cm2 score score BMD Change Since Prior Scan ------ ----- ----- PA Spine (L1 L2 L3) 0.841 -1.60 0.50 N/A Total Hip (Left) 0.740 -1.70 -0.10 N/A Femoral Neck (Left) 0.620 -2.10 -0.20 N/A Total Hip (Right) 0.770 -1.40 0.20 N/A Femoral Neck (Right) 0.612 -2.10 -0.30 N/A ------ ----- ----- * Denotes significant change when >= 0.022 g/cm2 for the spine, 0.027 g/cm2 for the total hip, 0.029 g/cm2 for the femoral neck. Interpretation: Osteopenia. Technical Quality: Imaging of all sites was of adequate quality. FRAX: Based on FRAX(r) 3.6 ([place] White female), this patient's likelihood of hip fracture is 5.9% and major osteoporotic fracture is 19.1% over the next 10 years. The patient reported the following risks of fracture on a questionnaire: parental history of hip fracture. Additional Information: -World Health Organization criteria classify adults based on lowest T-score at PA spine, hip or forearm: Normal (T-score >= -1.0), Osteopenia (T-score between -1 and -2.5), or Osteoporosis (T-score <= -2.5). At [facility], T-scores are compared to peak bone density of a young white gender matched reference population. - For premenopausal women and men under the age of 50, Z-scores (comparison to age, gender, and ethnicity matched reference population) are used: Above expected range for age (Z-score >= 2.0), Within expected range of age (Z-score 1.9 to -1.9), or Below expected range for age (Z-score <= -2.0). - The Bone Health and Osteoporosis Foundation recommends that treatment be considered in men aged more than 50 years and in postmenopausal women with ANY of the following: Prior hip or vertebral fractures; T-score of <= -2.5 at the PA spine or hip; or 10 year fracture probability by FRAX of >= 3% for the hip or >= 20% for major osteoporotic fracture. - The FRAX algorithm (https://www.shani.ac.uk/FRAX/tool.aspx) is designed to predict 10-year fracture risk in treatment-naive adults between the ages of 40 and 90. It is not intended to be used in those receiving pharmacologic osteoporosis treatment. - Including race/ethnicity in the generation of T- or Z-scores or in the FRAX calculation is complicated, and currently undergoing active review to ensure that we can give patients the best information on their risk of fracture. -Some prior studies may not be compatible with our comparison software. -Click on View Full Report to see subsequent pages with images and prior bone density results. Reviewed By: Kevin Chaudhry MD on 08/10/2024 14:21:59 Procedure Note Kevin Chaudhry MD - 08/10/2024 Referred By: WILBER VIEYRA Indications: Postmenopausal Scanner: Tomfoolery A with serial# of [id number] located at [facility] Bone Density Scan (DXA) 08/10/24 Details of prior DXA scans are available by clicking View Image BMD T- Z- Skeletal Site gm/cm2 score score BMD Change Since Prior Scan ------ ----- PA Spine (L1 L2 L3) 0.841 -1.60 0.50 N/A Total Hip (Left) 0.740 -1.70 -0.10 N/A Femoral Neck (Left) 0.620 -2.10 -0.20 N/A Total Hip (Right) 0.770 -1.40 0.20 N/A Femoral Neck (Right) 0.612 -2.10 -0.30 N/A ------ ----- * Denotes significant change when >= 0.022 g/cm2 for the spine, 0.027g/cm2 for the total hip, 0.029 g/cm2 for the femoral neck. Interpretation: Osteopenia. Technical Quality: Imaging of all sites was of adequate quality. FRAX: Based on FRAX(r) 3.6 ([place] White female), this patient's likelihoodof hip fracture is 5.9% and major osteoporotic fracture is 19.1% over thenext 10 years. The patient reported the following risks of fracture on a questionnaire: parental history of hip fracture. Additional Information: -World Health Organization criteria classify adults based on lowestT-score at PA spine, hip or forearm: Normal (T-score >= -1.0), Osteopenia (T-score between -1 and -2.5), or Osteoporosis (T-score <= -2.5). At [facility], T-scores are compared to peak bone density of a young white gender matched reference population. - For premenopausal women and men under the age of 50, Z-scores(comparison to age, gender, and ethnicity matched reference population) are used:Above expected range for age (Z-score >= 2.0), Within expected range of age (Z-score 1.9 to -1.9), or Below expected range for age (Z-score <= -2.0). - The Bone Health and Osteoporosis Foundation recommends that treatment be considered in men aged more than 50 years and in postmenopausal women with ANY of the following: Prior hip or vertebral fractures; T-score of <= -2.5 at the PA spine or hip; or 10 year fracture probability by FRAX of >= 3%for the hip or >= 20% for major osteoporotic fracture. - The FRAX algorithm (https://www.shani.ac.uk/FRAX/tool.aspx) is designed to predict 10-year fracture risk in treatment-naive adultsbetween the ages of 40 and 90. It is not intended to be used in those receiving pharmacologic osteoporosis treatment. - Including race/ethnicity in the generation of T- or Z-scores or in the FRAX calculation is complicated, and currently undergoing active review to ensure that we can give patients the best information on their risk of fracture. -Some prior studies may not be compatible with our comparison software. -Click on View Full Report to see subsequent pages with images and prior bone density results. Reviewed By: Kevin Chaudhry MD on 08/10/2024 14:21:59 IMPRESSION: Interpretation: Osteopenia. us Wilber Vieyra MD IMG BD BONE DENSITY DEXA Final R esult * Hepatitis C antibody, qualitative (05/26/2020 9:32 AM EST) HCV NON-REACTIV E NON-REACTI VE [facility] Blood 05/26/2020 9:32 AM EST 05/26/2020 9:38 AM EST us Reilly Tucker MD LAB BLOOD BKR ORDERABLE S Final Result [facility] [address] [place] [address] from Last 3 Months or Most Recently Relevant to Health Maintenance Insurance MEDICARE PART A & B [facility] MEDEX SUPPLEMENT MEDICARE PART A & B [employer] MED[employer] SUPPLEMENT MEDICARE PART A & B [employer] MED[employer] SUPPLEMENT MEDICARE PART A & B [employer] MED[employer] SUPPLEMENT MEDICARE PART A & B [employer] MED[employer] SUPPLEMENT MEDICARE PART A & B [facility] MEDEX SUPPLEMENT MEDICARE PART A & B [employer]OSS MEDEX SUPPLEMENT MEDICARE PART A & B [employer] MEDEX SUPPLEMENT MEDICARE PART A & B [employer] MEDEX SUPPLEMENT [employer] Advance Directives For more information, please contact: [phone] (9AM - 5PM [facility], Tuesday-Tuesday) Documents on File Type Date Recorded Patient Director Of Primary Expl anation Healthcare Proxy 08/30/2024 POLST 08/30/2024 Care Teams Model Maker Scale Relationship Specialty Start Date End Date Wilber Vieyra MD [address] [place] [address] [address] [place] [address] PCP - General Family Medicine 06/09/22 Shelly James MD [address] [place] [address], [address] [place], [place] [id number] [email or web address] Historical LMR Provider 05/01/17 Reilly Tucker MD [address] [place] [address] 7 [place] [id number] [email or web address] Historical LMR Provider 05/01/17 Wilber Vieyra MD [address] [place] [address] [address] [place] [address] [email or web address] Insurance Assigned Provider 10/15/23 Additional Source Comments The information contained in this document represents components of the legal health record. It is not the complete legal health record.[facility]
--- OUTSIDE RECORDS SUMMARY | 2025-06-24 19:36 | XMS_ITS | Encounter Summary ---
Author Organization [employer] Formerly [facility], [facility] Address [address] [place] [address] Phone Care Team Providers Care Quality Assurance Auditor Name Role Phone Reilyl Tucker MD Primary Care Provider Rosalie Donald FURNITURE SALESPERSON Unavailable Rosalina Ragland MAKING MACHINE OPERATOR Unavailable Shelly James MD Unavailable [phone] Reilly Tucker MD Unavailable Radha Lance MD Unavailable Naila Cosme FURNITURE SALESPERSON Unavailable [phone] Sarmad Tucker MD Unavailable Reilly Tucker MD Unavailable Ilya Vieyra MD Primary Care Provider [phone] Ilya Vieyra MD Unavailable Encounter Details Date Type Department Care Team (Late st Contact Info) Description 11/14/2018 Ancillary Orders [facility] [address] [place], [place] [phone] Reilly Tucker MD 234 [facility] 7 [place] [address] [email or web address] Breast screening Social History Tobacco Use Types Packs/Day Years Used Date Smoking Tobacco: Never Smokeless Tobacco: Never Alcohol Use Standard Drinks/Week Comments Yes 0 (1 standard drink = 0.6 oz pur [...] Description 09/06/2025 2:30 PM EST Office Visit [facility] [address] [place] [address] Ilya Vieyra MD 234 [facility] [address] [place] [address] [email or web address] documented as of this encounter Results * BI MAMMOGRAM SCREENING WITH TOMOSYNTHESIS WITH CAD (BILATERAL) (12/12/2018 9:55 AM EDT) Anatomical Region Laterality Modality Breast Left, Breast Right, Breast Bilateral Bila teral Mammography 12/12/2018 11:0 5 AM EDT Impressions 12/12/2018 11:08 AM EDT No mammographic evidence of malignancy. BI-RADS CATEGORY: 2 - Benign finding. DENSITY: There are scattered fibroglandular densities. POS - CDHMAMA Narrative 12/12/2018 11:08 AM EDT Standard digital full-field 2-D C view and two-plane tomographic imaging was performed and compared with multiple prior studies, most recently 11/24/2017, with utilization of computer-aided detection. The breasts are composed of scattered fibroglandular densities. The stromal markings are essentially unchanged in overall appearance and distribution. No dominant spiculated mass, suspicious clustered microcalcifications, or focal zone of pathologic skin thickening or retraction are noted to have arisen in the interim. Chronic linear secretory-type calcifications are again seen in the retroareolar tissues bilaterally. Procedure Note Mariseal Mccoy MD - 12/12/2018 Standard digital full-field 2-D C view and two-plane tomographic imagingwas performed and compared with multiple prior studies, most qtfrairr29/17/2018, with utilization of computer-aided detection. The breasts are composed of scattered fibroglandular densities. Thestromal markings are essentially unchanged in overall appearance anddistribution. No dominant spiculated mass, suspicious clusteredmicrocalcifications, or focal zone of pathologic skin thickening orretraction are noted to have arisen in the interim. Chronic linearsecretory-type calcifications are again seen in the retroareolar tissuesbilaterally. IMPRESSION: No mammographic evidence of malignancy. BI-RADS CATEGORY: 2 - Benign finding. DENSITY: There are scattered fibroglandular densities. POS - CDHMAMA Reilly Tucker MD IMG MG EXAMS Final R esult documented in this encounter Visit Diagnoses Diagnosis Breast screening Breast screening, unspecified Breast screening Breast screening, unspecified documented in this encounter Care Teams Quality Assurance Auditor Relationship Specialty Start Date End Date Reilly Tucker MD [address] [place] [phone] [email or web address] PCP - General 04/25/17 06/08/22 Ilya Vieyra MD [address] [place] [address] [email or web address] PCP - General Family Medicine 06/09/22 Rosalie Donald NP 1 [place] [address] Historical LMR Provider 05/01/17 2 Rosalina Ragland CNP [address] [facility], 2nd [place] [address] [email or web address] Historical LMR Provider 05/01/17 07/18/21 Shelly James MD [address] [place] [address] [email or web address] Historical LMR Provider 05/01/17 Reilly Tucker MD [address] [place] [address] 7 [place] [phone] [email or web address] Historical LMR Provider 05/01/17 Radha Lance MD [address] [place] [address] 7 [place] [address] [email or web address] Historical LMR Provider 05/01/17 07/18/21 Naila Cosme NP [address] [place] [address] Historical LMR Provider 05/01/17 2 Sarmad Tucker MD [address] [place] [address] [address] [place] [phone] [email or web address] Historical LMR Provider 05/01/17 07/18/21 Reilly Tucker MD [address] [place] [address] 7 [place] [phone] [email or web address] Insurance Assigned Provider 11/11/18 02/13/22 Ilya Vieyra MD [address] [place] [address] 7 [place] [address] [email or web address] Insurance Assigned Provider 10/15/23 documented as of this encounter Additional Source Comments The information contained in this document represents components of the legal health record. It is not the complete legal health record.[facility]
--- OUTSIDE RECORDS SUMMARY | 2025-06-24 19:36 | XMS_ITS | Encounter Summary ---
Author Organization [employer] [facility] Address [address] [address] Phone Care Team Providers Care Computer Hardware Designer Name Role Phone Shelly James MD Unavailable [phone] Reilly Tucker MD Unavailable [phone] Ilya Vieyra MD Primary Care Provider [phone] Ilya Vieyra MD Unavailable Encounter Details Date Type Department Care Team (Latest Contact Info) Description 08/17/2024 Transcribe Orders Virtual Department 30 [place] [address] Ilya Vieyra MD [address] [place] [address], [address] [place], [place] [phone] [email or web address] Breast screening (Primary Dx) Social History Tobacco Use Types [...] 09/06/2025 2:30 PM EST Office Visit [facility] 234 [place] [address] Ilya Vieyra MD 234 [facility], [address] [place] [address] [email or web address] documented as of this encounter Results * [...] findings are identified mammographically in either breast. Ilya Vieyra MD IMG MG EXAMS Final Result documented in this encounter Visit Diagnoses Diagnosis Breast screening- Primary Breast screening, unspecified Breast screening Breast screening, unspecified documented in this encounter Additional Health Concerns Assessment Noted Time PHQ-2 Depression Total Score: 1 02/23/20 24 2:03 PM EDT documented as of this encounter Care Teams Computer Hardware Designer Relationship Specialty Start Date End Date Ilya Vieyra MD 234 [facility] 7 [place] [address] PCP - General Family Medicine 06/09/22 Shelly James MD [address] [place] [address] [place] [address] [email or web address] Historical LMR Provider 05/01/17 Reilly Tucker MD [address] [place] [address] 7 [place] [address] [email or web address] Historical LMR Provider 05/01/17 Ilya Vieyra MD [address] [place] [address] 7 [place] [address] [email or web address] Insurance Assigned Provider 10/15/23 documented as of this encounter Additional Source Comments The information contained in this document represents components of the legal health record. It is not the complete legal health record.[facility]
--- OUTSIDE RECORDS SUMMARY | 2025-06-24 19:36 | XMS_ITS | Encounter Summary ---
Author Organization [employer] [facility] Address [address] [place] [address] [place] [address] Phone Care Team Providers Care Seasoner Name Role Phone Shelly James MD Unavailable [phone] Reilly Tucker MD Unavailable [phone] Ilya Vieyra MD Primary Care Provider [phone] Ilya Vieyra MD Unavailable Encounter Details Date Type Department Care Team (Latest Contact Info) Description 09/08/2022 Transcribe Orders Virtual Department 30 [place] [address] Ilya Vieyra MD [address] [phone] [email or web address] Breast screening (Primary Dx) Social History Tobacco [...] Description 09/06/2025 2:30 PM EST Office Visit [facility] 234 [place], [place] [phone] Ilya Vieyra MD 234 [facility] 7 [place], [place] [phone] [email or web address] documented as of this encounter Results * BI MAMMOGRAM SCREENING WITH TOMOSYNTHESIS WITH CAD (BILATERAL) (09/30/2022 1:35 PM EDT) Anatomical Region Laterality Modality Breast Left, Breast Right, Breast Bilateral Bila teral Mammography 09/30/2022 3:09 PM EDT Impressions 09/30/2022 3:12 PM EDT BILATERAL BREASTS: Benign, no evidence of malignancy. Recommend bilateral annual screening mammography in 12 months. Bi-RADS: BI-RADS CATEGORY: 2 - Benign finding. DENSITY: There are scattered fibroglandular densities. RIGHT RECOMMENDATION DUE DATE: 12 Months Recommendation: Right Mammography Screening LEFT RECOMMENDATION DUE DATE: 12 Months Recommendation: Left Mammography Screening Narrative 09/30/2022 3:12 PM EDT STUDY: Bilateral screening mammography with tomosynthesis and CAD TECHNIQUE: Bilateral full-field digital screening mammography is obtained and read in conjunction with computer-aided detection. Tomosynthesis as well as 2-D C view imaging were obtained. COMPARISON: Comparison made to multiple prior studies dating back to April 2013. BILATERAL BREASTS: No new masses, suspicious calcifications or other abnormalities are seen. Left breast excisional biopsy changes are again noted. No significant interval change. Procedure Note Matty Taylor MD - 09/30/2022 STUDY: Bilateral screening mammography with tomosynthesis and CAD TECHNIQUE: Bilateral full-field digital screening mammography is obtainedand read in conjunction with computer-aided detection. Tomosynthesis aswell as 2-D C view imaging were obtained. COMPARISON: Comparison made to multiple prior studies dating back toO2012. BILATERAL BREASTS: No new masses, suspicious calcifications or otherabnormalities are seen. Left breast excisional biopsy changes are againnoted. No significant interval change. IMPRESSION: BILATERAL BREASTS: Benign, no evidence of malignancy. Recommend bilateralannual screening mammography in 12 months. Bi-RADS: BI-RADS CATEGORY: 2 - Benign finding. DENSITY: There are scattered fibroglandular densities. RIGHT RECOMMENDATION DUE DATE: 12 Months Recommendation: Right Mammography Screening LEFT RECOMMENDATION DUE DATE: 12 Months Recommendation: Left Mammography Screening Ilya Vieyra MD IMG MG EXAMS Final Result documented in this encounter Visit Diagnoses Diagnosis Breast screening- Primary Breast screening, unspecified Breast screening Breast screening, unspecified documented in this encounter Additional Health Concerns Assessment Noted Time PHQ-2 Depression Total Score: 1 12/07/19 20 10:41 AM EDT documented as of this encounter Care Teams Seasoner Relationship Specialty Start Date End Date Ilya Vieyra MD [address] [place] [address] [email or web address] PCP - General Family Medicine 06/09/22 Shelly James MD [address] [place] [address] [email or web address] Historical LMR Provider 05/01/17 Reilly Tucker MD [address] [place] [phone] [email or web address] Historical LMR Provider 05/01/17 Ilya Vieyra MD [address] [place] [address] [email or web address] Insurance Assigned Provider 10/15/23 documented as of this encounter Additional Source Comments The information contained in this document represents components of the legal health record. It is not the complete legal health record.[facility]
--- OUTSIDE RECORDS SUMMARY | 2025-06-24 19:36 | XMS_ITS | Encounter Summary ---
Author Organization [employer] [facility] Address [address] [address] Phone Care Team Providers Care Trimmer Press Clippings Name Role Phone Shelly James MD Unavailable [phone] Reilly Tucker MD Unavailable Ilya Vieyra MD Primary Care Provider [phone] Ilya Vieyra MD Unavailable Encounter Details Date Type Department Care Team (Latest Contact Info) Description 08/08/2023 Transcribe Orders Virtual Department 30 [place] [address] Ilya Vieyra MD [address] [place] [address], [address] [place], [place] [phone] [email or web address] Breast screening (Primary Dx) Social History Tobacco [...] with a working camera? Not on file Comments No Sex and Gender Information Value Date Recorded Sex Assigned at Not on file Legal Sex Female 9:58 PM EDT Gender Identity Not on file Sexual Orientation Not on file documented as of this encounter Plan of Treatment Upcoming Encounters Date Type Department Care Team (Late st Contact Info) Description 09/06/2025 2:30 PM EST Office Visit [facility] 234 [place] [address] Ilya Vieyra MD 234 [facility], [address] [place] [address] [email or web address] documented as of this encounter Results * BI MAMMOGRAM SCREENING WITH TOMOSYNTHESIS WITH CAD (BILATERAL) (10/04/2023 1:38 PM EDT) Anatomical Region Laterality Modality Breast Left, Breast Right, Breast Bilateral Bila teral Mammography 10/05/2023 3:15 PM EDT Impressions 10/05/2023 3:17 PM EDT No mammographic evidence of malignancy in either breast. Annual screening mammography is recommended. BI-RADS 1 NEGATIVE The patient will be notified of the results and recommendations. Narrative 10/05/2023 3:17 PM EDT BI MAMMOGRAM SCREENING WITH TOMOSYNTHESIS WITH CAD (BILATERAL) Additional patient information: Screening. COMPARISON: Comparison is made with relevant prior imaging. Breast composition: There are scattered areas of fibroglandular density. FINDINGS: Benign, secretory type calcifications in both breasts. No abnormal masses, suspicious calcifications, or other significant findings are identified mammographically in either breast. Procedure Note Lamar Pak MD - 10/05/2023 BI MAMMOGRAM SCREENING WITH TOMOSYNTHESIS WITH CAD (BILATERAL) Additional patient information: Screening. COMPARISON: Comparison is made with relevant prior imaging. Breast composition: There are scattered areas of fibroglandular density. FINDINGS: Benign, secretory type calcifications in both breasts. No abnormal masses, suspicious calcifications, or other significantfindings are identified mammographically in either breast. IMPRESSION: No mammographic evidence of malignancy in either breast. Annual screening mammography is recommended. BI-RADS 1 NEGATIVE The patient will be notified of the results and recommendations. Ilya Vieyra MD IMG MG EXAMS Final Result documented in this encounter Visit Diagnoses Diagnosis Breast screening- Primary Breast screening, unspecified Breast screening Breast screening, unspecified documented in this encounter Additional Health Concerns Assessment Noted Time PHQ-2 Depression Total Score: 0 09/10/19 23 2:01 PM EST documented as of this encounter Care Teams Trimmer Press Clippings Relationship Specialty Start Date End Date Ilya Vieyra MD [address] [place] [address] 7 [place] [address] [email or web address] PCP - General Family Medicine 06/09/22 Shelly James MD [address] [place] [address] [address] [place] [address] [email or web address] Historical LMR Provider 05/01/17 Reilly Tucker MD [address] [place] [phone] [email or web address] Historical LMR Provider 05/01/17 Ilya Vieyra MD [address] [place] [address] 7 [place] [address] [email or web address] Insurance Assigned Provider 10/15/23 documented as of this encounter Additional Source Comments The information contained in this document represents components of the legal health record. It is not the complete legal health record.[facility]
--- OUTSIDE RECORDS SUMMARY | 2025-06-24 19:36 | XMS_ITS | Encounter Summary ---
Author Organization [employer] [facility] Address [address] [place] [address] Phone Care Team Providers Care Leather Leveler Name Role Phone Shelly James MD Unavailable [phone] Reilly Tucker MD Unavailable [phone] Ilya Vieyra MD Primary Care Provider [phone] Ilya Vieyra MD Unavailable Encounter Details Date Type Department Care Team (Late st Contact Info) Description 08/08/2023 Procedure Pass [facility] - [address] [place] [address] Social History Tobacco Use Types Packs/Day Years [...] Description 09/06/2025 2:30 PM EST Office Visit [facility] 234 [place] [address] Ilya Vieyra MD 234 [facility] 7 [place] [address] [email or web address] documented as of this encounter Visit Diagnoses Not on filedocumented in this encounter Additional Health Concerns Assessment Noted Time PHQ-2 Depression Total Score: 0 09/10/19 23 2:01 PM EST documented as of this encounter Care Teams Leather Leveler Relationship Specialty Start Date End Date Ilya Vieyra MD 234 [facility] 7 [place] [address] [email or web address] PCP - General Family Medicine 06/09/22 Shelly James MD [address] [place] [address] [email or web address] Historical LMR Provider 05/01/17 Reilly Tucker MD [address] [place] [address] [place] [phone] [email or web address] Historical LMR Provider 05/01/17 Ilya Vieyra MD [address] [place] [address] [place] [address] [email or web address] Insurance Assigned Provider 10/15/23 documented as of this encounter Additional Source Comments The information contained in this document represents components of the legal health record. It is not the complete legal health record.[facility]
--- OUTSIDE RECORDS SUMMARY | 2025-06-24 19:36 | XMS_ITS | Encounter Summary ---
Author Organization [employer] Formerly [facility] Address [address] [place] [address] Phone Care Team Providers Care Chainer Name Role Phone Reilly Tucker MD Primary Care Provider Rosalie Donald DIRECTOR SOFTWARE Unavailable Rosalina Ragland DOUBLE BASS PLAYER Unavailable [phone] Shelly James MD Unavailable [phone] Reilly Tucker MD Unavailable Radha Lance MD Unavailable Naila Cosme DIRECTOR SOFTWARE Unavailable [phone] Sarmad Tucker MD Unavailable Reilly Tucker MD Unavailable Ilya Vieyra MD Primary Care Provider [phone] Ilya Vieyra MD Unavailable Reason for Referral * MRI/CAT Scan - Closed Specialty Diagnoses / Procedures Referred By Contkaterin t Referred To Contact Radiology Diagnoses Abnormal stress test Procedures NC Myocardial Perfusion Stress Single NC Myocardial Perfusion Exercise Multiple Galileo Winters NP Phone: tel: Referral ID Status Reason Start Date Expiration Date Visits Re quested Visits Authorized [id number] Closed 08/22/2018 10/20/2018 1 1 Encounter Details Date Type Department Care Team (Latest Contact Info) Description 08/29/2018 [facility] [address], [address] [place] [address] Galileo Witners NP [address] [place] [address] Abnormal stress test Social History Tobacco Use Types Packs/Day Years [...] Description 09/06/2025 2:30 PM EST Office Visit [facility] [address] [place] [address] Ilya Vieyra MD 234 [facility], [address] [place] [address] [email or web address] documented as of this encounter Results * NC Myocardial Perfusion Stress Single (08/29/2018 1:49 PM EST) Nuc Stress EF 70 % LV Systolic Volume Index 17 mL/m2 LV Diastolic Volume Index 58 mL/m2 Anatomical Region Laterality Modality Heart Ultrasound Narrative 09/01/2018 2:44 PM EST There is no evidence of myocardial infarction or ischemia after stress only protocol Normal left ventricular size and function with no regional wall motion abnormalities. Low likelihood of hemodynamically significant coronary artery disease. Low risk study for myocardial events or cardiac in the next two years. Nuclear Study Quality Overall image quality is excellent. TYPE OF STUDY: Myocardial Perfusion Imaging after exercise utilizing a standard Oscar protocol with gated SPECT. PROTOCOL USED: Stress protocol only in the supine and prone position. Images were obtained after 20 minutes in gated tomographic technique. Images were processed in SPECT format, reconstructed tomographically and compared esks-iw-ywca in short axis, horizontal long axis and vertical long axis. DOSE: Technetium 99m Sestamibi 12.5 mCi injected intravenously during stress on 08/29/2018 with post injection scan time of 20 minutes. . There are no artifacts present. Study was gated successfully.. Perfusion Defect The lung to heart ratio is 0.35. Response to Stress BMI; 27.7 Exercise Stress Test Report: Reason for testing: Abnormal ETT - 07/31/18 Reason for termination: fatigue, R knee/ankle pain Summary: Resting ECG: SR/ST HR 99-100 BPM, NSSTW II, III, aVF Chest pain at rest: none Arrhythmias at baseline: none Conclusion: Patient exercised for 9:42 minutes on a standard Oscar protocol achieving 94% MPHR and 12.4 METS. Test terminated due to fatigue, R knee ankle/pain. Summary: 1. EKG: Up to [address] depressions in II, III, aVF; slow upsloping ST depression in V5, and downsloping ST depression in V6; EKG changes returning to baseline in late recovery. 2. Symptoms: No exertional chest pain or symptoms concerning for angina 3. Exercise physiology: Normal heart rate and BP response to exercise. Max HR 146 BPM with normal HR recovery. Max BP 176/82 from baseline BP of 134/84. High functional capacity for age. See attached stress report for full details. 4. Arrhythmia: occasional PAC, PVC Conclusion: Abnormal ETT with EKG changes in inferior and lateral leads suggestive of ischemia. No chest pain or symptoms concerning for angina. Vital signs at baseline at time of discharge from the lab. Nuclear images to follow. EKG reviewed with Dr. Barber. Rossi Cesar, CED, MPH . Stress Function Comments Post-stress ejection fraction was 70%. Stress end diastolic index: 58 mL/m2. Stress end systolic index: 17 mL/m2. Nuclear Prior Study There is no prior study available for comparison. Perfusion Scoring Stress Summed Score: 0 Percent Normal: 0.00% The left ventricular perfusion is normal. Procedure Note Eris Barber MD / Stanley Kelsey MD - 09/01/2018 There is no evidence of myocardial infarction or ischemia after stressonly protocol Normal left ventricular size and function with no regional wall motionabnormalities. Low likelihood of hemodynamically significant coronary artery disease. Low risk study for myocardial events or cardiac in the next twoyears. Galileo Winters DIRECTOR SOFTWARE CV NM CARDIAC Final R esult documented in this encounter Visit Diagnoses Diagnosis Abnormal stress test Other nonspecific abnormal cardiovascular system function study Abnormal stress test Other nonspecific abnormal cardiovascular system function study documented in this encounter Care Teams Chainer Relationship Specialty Start Date End Date Reilly Tucker MD [address] [place] [address] [place] [id number] [email or web address] PCP - General 04/25/17 06/08/22 Ilya Vieyra MD [address] [place] [address] [email or web address] PCP - General Family Medicine 06/09/22 Rosalie Donald NP 1 [place] [address] Historical LMR Provider 05/01/17 2 Rosalina Ragland CNP [address] [place] [address], 2nd [place] [address] [email or web address] Historical LMR Provider 05/01/17 07/18/21 Shelly James MD [address] [address] [email or web address] Historical LMR Provider 05/01/17 Reilly Tucker MD [address] [place], [place] [address] [address] Historical LMR Provider 05/01/17 Radha Lance MD [address] [place] [address], [place] [address] Historical LMR Provider 05/01/17 07/18/21 Naila Cosme NP 30 [place] [address] Historical LMR Provider 05/01/17 2 Sarmad Tucker MD [address] [place] [address] [address] [place] [phone] [email or web address] Historical LMR Provider 05/01/17 07/18/21 Reilly Tucker MD [address] [place] [address] [address] [place] [id number] [email or web address] Insurance Assigned Provider 11/11/18 02/13/22 Ilya Vieyra MD [address] [facility], [address] [place] [address] [email or web address] Insurance Assigned Provider 10/15/23 documented as of this encounter Additional Source Comments The information contained in this document represents components of the legal health record. It is not the complete legal health record.[facility]
--- OUTSIDE RECORDS SUMMARY | 2025-06-24 19:36 | XMS_ITS | Patient Health Record ---
Author Organization [facility] denise [place] Address [address] [facility] [place] [address] Care Team Providers Care Hand Cell Tuber Name Role Phone Ilya Vieyra Primary Care Provider Gretel Rhoades Unavailable [phone] Allergies Allergen (clinical drug ingredient) Drug/Non Drug Allergy documented on EMR Reaction Allergy Type Onset Date Status Adhesive rash Allergy Active Substance with penicillin structure and antibacterial mechanism of action (substance) Penicillins rash Drug Allergy Active Reason For Referral No Information Medications Medication SIG (Take, Route, Frequency, Duration) Notes Start Date End Date Status Fish Oil 500 MG 1 capsule Orally Thr ee times a day Active B Complex 50 Active Magnesium 250 MG 1 tablet with a meal Orally Once a day Active Simvastatin 20 MG 1 tablet in the even ing Orally Once a day Active Estradiol 10 MCG 1 _insert Vaginal Active Midodrine HCl 2.5 MG 1 tablet Orally Twi ce a day Active Vitamin D3 25 MCG (1000 UT) 1 capsule Or ally Once a day Active Lansoprazole Active Droxidopa 100 MG 1 capsule Orally Fou r times a day Active Social History Tobacco Use: Social History Observation Description Date Details (start date - stop date) Never Smoker NA - NA Tobacco use other than smoking: Question Answer Notes Are you an other tobacco user? No Tobacco Control (Standard) Question Answer Notes Tobacco use: Nonsmoker Additional Findings: Tobacco non-user Current no nsmoker Problems Problem Type SNOMED Code ICD Code Onset Dates Problem Status W/U Status Risk Notes Problem Ulcer of toe of right foot (disorder) (36891476631 570636) Skin ulcer of toe of right foot, limited to breakdown of skin (L97.511) Active confirmed Vital Signs Blood pressure diastolic 60 mm Hg 12/17/2024 Height 5ft4in in 12/17/2024 Blood pressure systolic 100 mm Hg 12/17/2024 Weight 145 lbs 12/17/2024 BMI 24.89 kg/m2 12/17/2024 Procedures Procedure Date Ordered Date Performed Result Body Sit e 81931-Zcapvkim Plate 11/19/2024 N/A 75469- Debride <25 sq cm 12/17/2024 N/A Encounters Encounter Location Date Provider Diagnosis [facility] [address] [address] 11/19/2024 Gretel Black Pain in right foot M79.671 ; Metatarsalgia, right foot M77.41 ; Ingrown nail L60.0 ; Pain in right ankle and joints of right foot M25.571 and Bursitis of intermetatarsal bursa of right foot M77.[address] [facility] [address] [address] 12/17/2024 Gretel Black Metatarsalgia, right foot M77.41 ; Skin ulcer of toe of right foot, limited to breakdown of skin L97.511 ; Pain in right foot M79.671 ; Pain in right ankle and joints of right foot M25.571 and Bursitis of intermetatarsal bursa of right foot M77.51 Assessments Encounter Date Diagnosis (ICD Code) Assessment Notes Treatment Notes Treatment Clinical Notes Section Notes 11/19/2024 Metatarsalgia, right foot (ICD-10 - M77.41) 11/19/2024 Pain in right foot (ICD-10 - M79.671) 12/17/2024 Metatarsalgia, right foot (ICD-10 - M77.41) 12/17/2024 Skin ulcer of toe of right foot, limited to breakdown of skin (ICD-10 - L97.511) Patient Educated with: WOUND CARE INSTRUCTIONS. pdf (WOUND CARE INSTRUCTIONS. pdf) 11/19/2024 Ingrown nail (ICD-10 - L60.0) 12/17/2024 Pain in right foot (ICD-10 - M79.671) 11/19/2024 Pain in right ankle and joints of right foot (ICD-10 - M25.571) 12/17/2024 Pain in right ankle and joints of right foot (ICD-10 - M25.571) 12/17/2024 Bursitis of intermetatarsal bursa of right foot (ICD-10 - M77.51) 11/19/2024 Bursitis of intermetatarsal bursa of right foot (ICD-10 - M77.51) 12/17/2024 Other Plan Of Treatment Pending Test Test Name Order Date 93424-Ouajvaki Plate 11/19/2024 97071- Debride <25 sq cm 12/17/2024 Insurance Providers Payer Name Payer Address Payer Phone Subscriber Number Group Number Insured Name Patient Relationship to Insured Coverage Start Date Coverage End Date Medicare National Govt [facility] [facility] [address] [place] [address] [id number] Rhonda Fink Self - patient is the insured 2 [employer] [address] [place] [address] [phone] [id number] Rhonda Fink Self - patient is the insured Medical (General) History Medical History History ICD Code Back,Hip,and Knee pain Broken bones Headaches/Migraines Parkinsons disease Reflux ( GERD) Chicken pox Surgical History Surgery Date(Month/Year) ankle surgery 2x 08/1989, 05/1990
--- OUTSIDE RECORDS SUMMARY | 2025-06-24 19:36 | XMS_ITS | Encounter Summary ---
Author Organization [employer] [facility] Address [address] [place] [address] [place] [address] Phone Care Team Providers Care Ornamental Ironworker Name Role Phone Shelly James MD Unavailable [phone] Reilly Tucker MD Unavailable [phone] Ilya Vieyra MD Primary Care Provider [phone] lIya Vieyra MD Unavailable Encounter Details Date Type Department Care Team (Late st Contact Info) Description 09/08/2022 Procedure Pass [facility] - [address] [place] [address] Social History Tobacco Use Types Packs/Day Years [...] Description 09/06/2025 2:30 PM EST Office Visit [facility] [address] [place], [place] [phone] Ilya Vieyra MD [address] [place] [address], [address] [place], [place] [phone] [email or web address] documented as of this encounter Visit Diagnoses Not on filedocumented in this encounter Additional Health Concerns Assessment Noted Time PHQ-2 Depression Total Score: 0 09/10/19 23 2:01 PM EST documented as of this encounter Care Teams Ornamental Ironworker Relationship Specialty Start Date End Date Ilya Vieyra MD [address] [place] [address] 7 [place] [address] [email or web address] PCP - General Family Medicine 06/09/22 Shelly James MD [address] [place] [address] [place] [address] [email or web address] Historical LMR Provider 05/01/17 Reilly Tucker MD [address] [place] [id number] [email or web address] Historical LMR Provider 05/01/17 Ilya Vieyra MD [address] [place] [address] 7 [place] [address] [email or web address] Insurance Assigned Provider 10/15/23 documented as of this encounter Additional Source Comments The information contained in this document represents components of the legal health record. It is not the complete legal health record.[facility]
--- OUTSIDE RECORDS SUMMARY | 2025-06-24 19:36 | XMS_ITS | Encounter Summary ---
Author Organization [employer] [facility] Address [address] [place] [address] Phone Care Team Providers Care Android Platform Developer Name Role Phone Reilly Tucker MD Primary Care Provider Rosalie Donald PIPE THREADER Unavailable Rosalina Ragland CRAB FISHER Unavailable Shelly James MD Unavailable Reilly Tucker MD Unavailable Radha Lance MD Unavailable [phone] Naila Cosme PIPE THREADER Unavailable [phone] Sarmad Tucker MD Unavailable Reilly Tucker MD Unavailable Ilya Vieyra MD Primary Care Provider Ilya Vieyra MD Unavailable Encounter Details Date Type Department Care Team (Late st Contact Info) Description 10/11/2017 Ancillary Orders [facility] [address] [place], [place] [phone] Reilly Tucker MD 234 [facility] 7 [place] [address] [email or web address] Breast screening Social History Tobacco Use Types Packs/Day Years Used Date Smoking Tobacco: Never Smokeless Tobacco: Never Comments Unknown Sex and Gender Information Value Date Recorded Sex Assigned at Not on file Legal Sex Female 9:58 PM EDT Gender Identity Not on file Sexual Orientation Not on file documented as of this encounter Plan of Treatment Upcoming Encounters Date Type Department Care Team (Late st Contact Info) Description 09/06/2025 2:30 PM EST Office Visit [facility] [address] [place] [address] Ilya Vieyra MD 234 [facility], [address] [place] [address] [email or web address] documented as of this encounter Results * BI MAMMOGRAM SCREENING WITH TOMOSYNTHESIS WITH CAD (BILATERAL) (11/24/2017 10:01 AM EDT) Anatomical Region Laterality Modality Breast Left, Breast Right, Breast Bilateral Bila teral Mammography 11/24/2017 3:52 PM EDT Impressions 11/24/2017 3:54 PM EDT BILATERAL BREASTS: Negative, no evidence of malignancy. Normal interval follow- up is recommended in 12 months. BI-RADS CATEGORY: 1 - Negative. DENSITY: There are scattered fibroglandular densities. POS - CDHMAMA Narrative 11/24/2017 3:54 PM EDT STUDY: Bilateral screening mammography with tomosynthesis and CAD TECHNIQUE: Bilateral full-field digital screening mammography is obtained and read in conjunction with computer-aided detection. Tomosynthesis as well as 2-D C view imaging were obtained. COMPARISON: Comparison made to multiple prior, most recent September 16, 2016, and most remote April 02, 2011. BREAST COMPOSITION: There are scattered areas of fibroglandular density BILATERAL BREASTS: No significant masses, calcifications or other abnormalities are seen. Procedure Note Kavitha Lindquist MD - 11/24/2017 STUDY: Bilateral screening mammography with tomosynthesis and CAD TECHNIQUE: Bilateral full-field digital screening mammography is obtainedand read in conjunction with computer-aided detection. Tomosynthesis aswell as 2-D C view imaging were obtained. COMPARISON: Comparison made to multiple prior, most recent September 16, 2016,and most remote April 02, 2011. BREAST COMPOSITION: There are scattered areas of fibroglandulardensity BILATERAL BREASTS: No significant masses, calcifications or otherabnormalities are seen. IMPRESSION: BILATERAL BREASTS: Negative, no evidence of malignancy. Normal intervalfollow-up is recommended in 12 months. BI-RADS CATEGORY: 1 - Negative. DENSITY: There are scattered fibroglandular densities. POS - CDHMAMA us Reilly Tucker MD IMG MG EXAMS Final R esult documented in this encounter Visit Diagnoses Diagnosis Breast screening Breast screening, unspecified Breast screening Breast screening, unspecified documented in this encounter Care Teams Android Platform Developer Relationship Specialty Start Date End Date Reilly Tucker MD [address] [place] [phone] [email or web address] PCP - General 04/25/17 06/08/22 Ilya Vieyra MD [address] [place] [address] 7 [place] [address] PCP - General Family Medicine 06/09/22 Rosalie Donald NP 1 [place] [address] Historical LMR Provider 05/01/17 2 Rosalina Ragland CNP [address] [facility], 2nd [place] [address] Historical LMR Provider 05/01/17 07/18/21 Shelly James MD 22 [facility], [address] [place] [address] Historical LMR Provider 05/01/17 Reilly Tucker MD [address] [place] [address] 7 [place] [phone] [email or web address] Historical LMR Provider 05/01/17 Radha Lance MD [address] [place] [address] 7 [place] [address] [email or web address] Historical LMR Provider 05/01/17 07/18/21 Naila Cosme NP [address] [place] [address] Historical LMR Provider 05/01/17 2 Sarmad Tucker MD [address] [place] [address] [address] [place] [phone] [email or web address] Historical LMR Provider 05/01/17 07/18/21 Reilly Tucker MD [address] [place] [address] 7 [place] [phone] [email or web address] Insurance Assigned Provider 11/11/18 02/13/22 Ilya Vieyra MD [address] [place] [address] 7 [place] [id number] [email or web address] Insurance Assigned Provider 10/15/23 documented as of this encounter Additional Source Comments The information contained in this document represents components of the legal health record. It is not the complete legal health record.[facility]
--- OUTSIDE RECORDS SUMMARY | 2025-06-24 19:36 | XMS_ITS | Encounter Summary ---
Author Organization [employer] [facility] Address [address] [place] [address] [place] [address] Phone Care Team Providers Care Starcher And Tenter Range Feeder Name Role Phone Reilly Tucker MD Primary Care Provider Shelly James MD Unavailable [phone] Reilly Tucker MD Unavailable [phone] Reilly Tucker MD Unavailable [phone] Ilya Vieyra MD Primary Care Provider [phone] Ilya Vieyra MD Unavailable Encounter Details Date Type Department Care Team (Late st Contact Info) Description 08/19/2021 Procedure Pass [facility] - [address] [place] [address] Social History Tobacco Use Types Packs/Day Years [...] Description 09/06/2025 2:30 PM EST [facility] [address] [place] [address] Ilya Vieyra MD 234 [facility], [address] [place] [address] [email or web address] documented as of this encounter Visit Diagnoses Not on filedocumented in this encounter Additional Health Concerns Assessment Noted Time PHQ-2 Depression Total Score: 1 12/07/19 20 10:41 AM EDT documented as of this encounter Care Teams Starcher And Tenter Range Feeder Relationship Specialty Start Date End Date Reilly Tucker MD [address] [place] [address] [place] [phone] [email or web address] PCP - General 04/25/17 06/08/22 Ilya Vieyra MD [address] [place] [address] [place] [phone] [email or web address] PCP - General Family Medicine 06/09/22 Shelly James MD [address] [place] [address] [email or web address] Historical LMR Provider 05/01/17 Reilly Tucker MD [address] [place] [address] [place] [phone] [email or web address] Historical LMR Provider 05/01/17 Reilly Tucker MD [address] [place] [address] [place] [phone] [email or web address] Insurance Assigned Provider 11/11/18 Ilya Vieyra MD [address] [place], [place] [address] [address] [email or web address] Insurance Assigned Provider 10/15/23 documented as of this encounter Additional Source Comments The information contained in this document represents components of the legal health record. It is not the complete legal health record.[facility]
--- OUTSIDE RECORDS SUMMARY | 2025-06-24 19:36 | XMS_ITS | Encounter Summary ---
Author Organization [facility] Address [address] [place] [id number] Phone Care Team Providers Care Oracle Sql Developer Name Role Phone Shelly James MD Unavailable [phone] Reilly Tucker MD Unavailable [phone] Ilya Vieyra MD Primary Care Provider [phone] Ilya Vieyra MD Unavailable Encounter Details Date Type Department Care Team (Late st Contact Info) Description 08/17/2024 Procedure Pass [facility] - [address] [place] [address] Social History Tobacco Use Types Packs/Day Years [...] food would run out Not on file 08/15 /2024 In the past 12 months have y [...] Description 09/06/2025 2:30 PM EST Office Visit [facility] [address] [place] [address] Ilya Vieyra MD [address] [address] [email or web address] documented as of this encounter Visit Diagnoses Not on filedocumented in this encounter Additional Health Concerns Assessment Noted Time PHQ-2 Depression Total Score: 1 02/23/20 24 2:03 PM EDT documented as of this encounter Care Teams Oracle Sql Developer Relationship Specialty Start Date End Date Ilya Vieyra MD [address] [place] [id number] [email or web address] PCP - General Family Medicine 06/09/22 Shelly James MD [address] [place] [phone] [email or web address] Historical LMR Provider 05/01/17 Reilly Tucker MD [address] [place] [phone] [email or web address] Historical LMR Provider 05/01/17 Ilya Vieyra MD [address] [place] [phone] [email or web address] Insurance Assigned Provider 10/15/23 documented as of this encounter Additional Source Comments The information contained in this document represents components of the legal health record. It is not the complete legal health record.[email or web address]
== END 2025-06-24 13:58 | disposition home or self-care (01) ==
LOC: HO.HSMS 13:27
PROVIDERS: PCP Family Medicine; Visit Provider Psychiatry & Neurology Neurology
DX: G20.C Parkinsonism, unspecified (principal); I95.1 Orthostatic hypotension
CPT/HCPCS: 99214; G2211

== ENCOUNTER → 2025-06-24 13:27 | Outpatient (BNVA) | payer MEDICARE, SELFPAY | PROVIDERS: PCP Family Medicine; Visit Provider Psychiatry & Neurology Neurology | DX: I95.1 Orthostatic hypotension (principal); G20.C Parkinsonism, unspecified | CPT/HCPCS: 99212 ==